=== PATIENT | male | born 1970 | race Caucasian/White ===

== ENCOUNTER → 2018-08-11 | Outpatient (CLI) | payer BC ==
--- NOTE | 2018-08-11 11:40 | XR ---
EXAMINATION TYPE: XR shoulder complete RT DATE OF EXAM: 08/11/2018 COMPARISON: NONE HISTORY: 48 year-old male right shoulder pain for a few weeks TECHNIQUE: 3 views FINDINGS: Moderate degenerative joint space narrowing with marginal spurring at the acromioclavicular joint. Si milar spurring extends into the subacromial space. There is mild degenerative change at the glenohume ral joint with subchondral cystic change within the inferior glenoid. No acute fracture, subluxation, or dislocation. IMPRESSION: 1. Mild glenohumeral joint OA. 2. Moderate AC joint OA. 3. No acute osseous abnormality seen.
--- NOTE | 2018-08-11 12:04 | XR ---
EXAMINATION TYPE: XR ankle complete RT DATE OF EXAM: 08/11/2018 COMPARISON: NONE HISTORY: 48 year-old male right ankle pain for a few weeks TECHNIQUE: 3 views FINDINGS: Lateral sideplate and screw fixation of the distal fibula. Corticated ossific fragment below the medi al malleolus compatible with chronic ununited fracture fragment. Additional loose body or an united f racture fragment measuring 7 mm on the anterior aspect of the tibiotalar joint. There is subchondral lucency focally within the medial talar dome on the oblique view. Otherwise, ankle mortise is congrue nt. Subtalar joint is aligned. Small plantar calcaneal spur. IMPRESSION: 1. Plate and screw fixation of the distal fibula. Soft tissue swelling about the ankle with suspected OCD at the medial talar dome. MRI can provide further evaluation if this is not a known diagnosis. 2. 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
== END | disposition home or self-care (01) ==
LOC: RADXRMAIN 09:02
PROVIDERS: ATTEND Pediatrics
DX: M19.011 Primary osteoarthritis, right shoulder (principal); M84.471 Pathological fracture, right ankle; Z96.7 Presence of other bone and tendon implants

== ENCOUNTER 2018-09-04 15:30 | Emergency (ER) | payer BC ==
[2018-09-04 16:02] VITALS: BP 122/75; PULSE 66; RESP 18; TEMP 97.7
--- NOTE | 2018-09-04 16:27 | XR ---
EXAMINATION TYPE: XR foot complete RT DATE OF EXAM: 09/04/2018 COMPARISON: NONE HISTORY: Pain TECHNIQUE: 3 views FINDINGS: Metatarsals are intact. There is an Achilles calcaneal spur. I see no fracture nor dislocat ion. There are no erosions. There is a plate fixing the distal fibula. IMPRESSION: No acute abnormality of the right foot.
--- NOTE | 2018-09-04 16:32 | ED ---
General Adult HPI - General Chief complaint: Extremity Injury, Lower Stated complaint: Foot pain Time Seen by Provider: 09/04/18 16:16 Source: patient, RN notes reviewed Mode of arrival: ambulatory Limitations: no limitations - History of Present Illness Initial comments: 48-year-old male with history of hypertension presents to the emergency department for chief complaint of right foot pain times one day. Patient states yesterday he was walking and felt a pop in the bottom of his foot. He states that his pain is currently a 4 out of 10. He states that he can walk on it but is limping somewhat. He states he has not been taking anything for pain. Patient states he does notice his foot is more swollen. He denies any calf pain or history of DVT. Denies any other injuries. He states he did have an ankle surgery in the past and is seeing Dr. Dee in 10 days as he has had pain with his ankle. He recently had an x-ray of the ankle and does not need another one today. Patient has no other complaints at this time including shortness of breath, chest pain, abdominal pain, nausea or vomiting, headache, or visual changes. - Related Data Home Medications Medication Instructions Recorded Confirmed ARIPiprazole [Abilify] 30 mg PO DAILY 09/04/18 09/04/18 Aspirin 81 mg PO DAILY 09/04/18 09/04/18 Diltiazem HCl [Diltiazem 24Hr CD] 120 mg DAILY 09/04/18 09/04/18 [place] Carbonate 300 mg PO DAILY 09/04/18 09/04/18 Metoprolol Tartrate [Lopressor] 100 mg PO BID 09/04/18 09/04/18 Multivitamin [Men's Multi-Vitamin] 1 cap DAILY 09/04/18 09/04/18 QUEtiapine [SEROquel] 100 mg PO DAILY 09/04/18 09/04/18 Sertraline [Zoloft] 50 mg PO DAILY 09/04/18 09/04/18 Temazepam [Restoril] 30 mg PO HS PRN 09/04/18 09/04/18 Trihexyphenidyl [Artane] 2 mg PO BID 09/04/18 09/04/18 Allergies Allergy/AdvReac Type Severity Reaction Status Date / Time No Known Allergies Allergy Verified 09/04/18 15:59 Review of Systems ROS Statement: Those systems with pertinent positive or pertinent negative responses have been documented in the HPI. ROS Other: All systems not noted in ROS Statement are negative. Past Medical History Past Medical History: Hypertension History of Any Multi-Drug Resistant Organisms: None Reported Past Surgical History: Orthopedic Surgery Additional Past Surgical History / Comment(s): R leg Past Psychological History: Depression, Schizophrenia Smoking Status: Never smoker Past Alcohol Use History: None Reported Past Drug Use History: None Reported General Exam Limitations: no limitations General appearance: alert, in no apparent distress Head exam: Present: atraumatic, normocephalic, normal inspection Eye exam: Present: normal appearance, PERRL, EOMI. Absent: scleral icterus, conjunctival injection, periorbital swelling ENT exam: Present: normal exam, mucous membranes moist Neck exam: Present: normal inspection, full ROM. Absent: tenderness, meningismus, lymphadenopathy Respiratory exam: Present: normal lung sounds bilaterally. Absent: respiratory distress, wheezes, rales, rhonchi, stridor Cardiovascular Exam: Present: regular rate, normal rhythm, normal heart sounds. Absent: systolic murmur, diastolic murmur, rubs, gallop, clicks Extremities exam: Present: full ROM (Full range of motion of the right ankle and digits of the right foot.), tenderness (Minimal unimpressive tenderness noted to the plantar aspect of the right foot), normal capillary refill ( Capillary refill less than 2 seconds and dorsal pedis pulse 2+.), joint swelling (1+ pitting edema noted in the right foot. Patient also has pitting edema in the left foot which is chronic.), other (Mild ecchymosis noted on medial aspect of plantar right foot.). Absent: calf tenderness (No calf tenderness, erythema, edema. Negative Homans sign.) Neurological exam: Present: alert, oriented X3, CN II-XII intact Psychiatric exam: Present: normal affect, normal mood Course Vital Signs 09/04/18 15:59 Temperature 97.7 F Pulse Rate 66 Respiratory 18 Rate Blood Pressure 122/75 O2 Sat by Pulse 100 Oximetry Medical Decision Making - Medical Decision Making 48-year-old male presents to the emergency department for a chief complaint of right foot pain and swelling times one day. Patient states he was walking yesterday when he felt a pop in the arch of his foot. Patient denies history of diabetes. Patient has had ankle surgery in the past and currently has an appointment scheduled for 10 days from now with orthopedics. On exam neurovascular intact. There is mild ecchymosis noted on the medial plantar aspect of the right foot. Patient states he is able to ambulate that it is somewhat painful. X-rays shows no fracture or dislocation. However, patient I did recommend splint as I cannot rule out ligament injury at this point. Patient refused this. He states he does not feel like he needs a splint. He states he will use crutches at home and not bear weight. He does agree to use a fracture shoe. He will follow up with orthopedics in one to 2 days. Patient will contact Dr. Dee and see if he can expedite his appointment. Otherwise he will call on-call orthopedic surgeon. Educated on rice therapy and Motrin and Tylenol for pain. I did offer patient pain medications in the emergency department which she did refuse. He will return to the emergency department if he has any worsening symptoms. Discussed with Dr. Alas Disposition Clinical Impression: Foot pain, right Disposition: HOME SELF-CARE Condition: Good Instructions: Foot Sprain (ED) Additional Instructions: Rest ice and elevate the right foot. Wear fracture shoe until you see orthopedics. Use crutches until you see orthopedics. Please follow-up with orthopedics in one to 2 days. Please return immediately to the emergency department if you have any worsening symptoms. Is patient prescribed a controlled substance at d/c from ED?: No Referrals: Pepe Peterson MD [STAFF PHYSICIAN] - 1-2 days Time of Disposition: 17:02
== END 2018-09-04 17:36 | disposition home or self-care (01) ==
LOC: EC 15:30
DX: S90.31XA Contusion of right foot, initial encounter (principal); M25.571 Pain in right ankle and joints of right foot; I10 Essential (primary) hypertension; F20.9 Schizophrenia, unspecified; F32.9 Major depressive disorder, single episode, unspecified; Z79.82 Long term (current) use of aspirin; Z79.899 Other long term (current) drug therapy; Z98.890 Other specified postprocedural states; X50.9XXA Other and unspecified overexertion or strenuous movements or postures, initial encounter; Y93.01 Activity, walking, marching and hiking
CPT/HCPCS: 99283

== ENCOUNTER 2018-12-24 14:32 | Inpatient (IN) | payer BC, MEDICARE ==
[2018-12-24] MEDS ORDERED: IPRATROPIUM-ALBUTEROL 3 ML NEB INHALATION STA (14:51)
[2018-12-24] MEDS ORDERED: SODIUM CHLORIDE 0.9% 1,000 ML IV STA (14:51)
--- NOTE | 2018-12-24 15:00 | ED ---
SOB HPI - General Chief Complaint: Shortness of Breath Stated Complaint: Possible pneumonia Time Seen by Provider: 12/24/18 14:52 Source: patient, RN notes reviewed Mode of arrival: ambulatory Limitations: no limitations - History of Present Illness Initial Comments: Is a 48-year-old male with a benign history who presents with complaints of shortness of breath for about last week or so. He's had chills no sweats he is has some left-sided chest discomfort along with it he was seen at his doctor's office and sent here for further evaluation for possible pneumonia. 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 He denies any other complaints at this time. MD Complaint: shortness of breath - Related Data Home Medications Medication Instructions Recorded Confirmed ARIPiprazole [Abilify] 30 mg PO DAILY 09/04/18 12/24/18 Aspirin 81 mg PO DAILY 09/04/18 12/24/18 Diltiazem HCl [Diltiazem 24Hr CD] 120 mg PO DAILY 09/04/18 12/24/18 [place] Carbonate 300 mg PO BID 09/04/18 12/24/18 Metoprolol Tartrate [Lopressor] 100 mg PO BID 09/04/18 12/24/18 Multivitamin [Men's Multi-Vitamin] 1 cap PO DAILY 09/04/18 12/24/18 QUEtiapine [SEROquel] 100 mg PO DAILY@1700 09/04/18 12/24/18 Sertraline [Zoloft] 75 mg PO DAILY 09/04/18 12/24/18 Temazepam [Restoril] 30 mg PO HS PRN 09/04/18 12/24/18 Trihexyphenidyl [Artane] 2 mg PO BID 09/04/18 12/24/18 Allergies Allergy/AdvReac Type Severity Reaction Status Date / Time No Known Allergies Allergy Verified 12/24/18 14:55 Review of Systems ROS Statement: Those systems with pertinent positive or pertinent negative responses have been documented in the HPI. ROS Other: All systems not noted in ROS Statement are negative. Past Medical History Past Medical History: Hypertension History of Any Multi-Drug Resistant Organisms: None Reported Past Surgical History: Orthopedic Surgery Additional Past Surgical History / Comment(s): R leg Past Psychological History: Depression, Schizophrenia Smoking Status: Never smoker Past Alcohol Use History: None Reported Past Drug Use History: None Reported General Exam - General Exam Comments Initial Comments: Is a well-developed well-nourished awake alert oriented 3 male Limitations: no limitations General appearance: alert, anxious, in distress Head exam: Present: atraumatic, normocephalic, normal inspection Eye exam: Present: normal appearance, PERRL, EOMI. Absent: scleral icterus, conjunctival injection, periorbital swelling ENT exam: Present: mucous membranes dry Neck exam: Present: normal inspection. Absent: tenderness, meningismus, lymphadenopathy Respiratory exam: Present: rhonchi (Follow-up rhonchi), chest wall tenderness, decreased breath sounds. Absent: respiratory distress, wheezes, rales, stridor Cardiovascular Exam: Present: regular rate, normal rhythm, normal heart sounds. Absent: systolic murmur, diastolic murmur, rubs, gallop, clicks GI/Abdominal exam: Present: soft, normal bowel sounds. Absent: distended, tenderness, guarding, rebound, rigid Extremities exam: Present: normal inspection, full ROM, normal capillary refill , pedal edema (Race edema bilaterally more swelling right than left). Absent: tenderness, joint swelling, calf tenderness Back exam: Present: normal inspection Neurological exam: Present: alert, oriented X3, CN II-XII intact Psychiatric exam: Present: normal affect, normal mood Skin exam: Present: warm, dry, intact, normal color. Absent: rash Course Vital Signs 12/24/18 12/24/18 12/24/18 14:34 15:09 15:19 Temperature 97.6 F Pulse Rate 79 82 81 Respiratory 24 16 16 Rate Blood Pressure 192/71 O2 Sat by Pulse 81 L Oximetry - Reevaluation(s) Reevaluation #1: 12/24/18 16:24 I did reevaluate the patient on several occasions his saturation still remains low however it does not seem to correlate with clinical condition. Medical Decision Making - Medical Decision Making I did discuss the findings with the patient and family members as well as Dr. hook who is covering for Dr. Remy patient will be admitted with pulmonary consultation. - Lab Data Result diagrams: 12/24/18 15:09 12/24/18 15:09 Lab Results 12/24/18 12/24/18 12/24/18 Range/Units 15:09 15:09 15:09 WBC 11.3 H (3.8-10.6) k/uL RBC 4.96 (4.30-5.90) m/uL Hgb 14.1 (13.0-17.5) gm/dL Hct 42.7 (39.0-53.0) % MCV 86.1 (80.0-100.0) fL MCH 28.5 (25.0-35.0) pg MCHC 33.1 (31.0-37.0) g/dL RDW 15.2 (11.5-15.5) % Plt Count 254 (150-450) k/uL Neutrophils % 74 % Lymphocytes % 14 % Monocytes % 6 % Eosinophils % 3 % Basophils % 1 % Neutrophils # 8.4 H (1.3-7.7) k/uL Lymphocytes # 1.6 (1.0-4.8) k/uL Monocytes # 0.7 (0-1.0) k/uL Eosinophils # 0.4 (0-0.7) k/uL Basophils # 0.1 (0-0.2) k/uL PT (9.0-12.0) sec INR (<1.2) APTT (22.0-30.0) sec Sodium 143 (137-145) mmol/L Potassium 4.8 (3.5-5.1) mmol/L Chloride 107 (98-107) mmol/L Carbon Dioxide 25 (22-30) mmol/L Anion Gap 11 mmol/L BUN 15 (9-20) mg/dL Creatinine 1.01 (0.66-1.25) mg/dL Est GFR (CKD-EPI)AfAm >90 (>60 ml/min/1.73 sqM) Est GFR (CKD-EPI)NonAf 88 (>60 ml/min/1.73 sqM) Glucose 111 H (74-99) mg/dL Calcium 9.7 (8.4-10.2) mg/dL Magnesium 2.1 (1.6-2.3) mg/dL Total Bilirubin 0.6 (0.2-1.3) mg/dL AST 29 (17-59) U/L ALT 31 (21-72) U/L Alkaline Phosphatase 111 (38-126) U/L Total Creatine Kinase 204 H (55-170) U/L CK-MB (CK-2) 1.9 (0.0-2.4) ng/mL CK-MB (CK-2) Rel Index 0.9 Troponin I 0.018 (0.000-0.034) ng/mL NT-Pro-B Natriuret Pep pg/mL Total Protein 7.7 (6.3-8.2) g/dL Albumin 4.4 (3.5-5.0) g/dL 12/24/18 12/24/18 Range/Units 15:09 15:09 WBC (3.8-10.6) k/uL RBC (4.30-5.90) m/uL Hgb (13.0-17.5) gm/dL Hct (39.0-53.0) % MCV (80.0-100.0) fL MCH (25.0-35.0) pg MCHC (31.0-37.0) g/dL RDW (11.5-15.5) % Plt Count (150-450) k/uL Neutrophils % % Lymphocytes % % Monocytes % % Eosinophils % % Basophils % % Neutrophils # (1.3-7.7) k/uL Lymphocytes # (1.0-4.8) k/uL Monocytes # (0-1.0) k/uL Eosinophils # (0-0.7) k/uL Basophils # (0-0.2) k/uL PT 10.6 (9.0-12.0) sec INR 1.0 (<1.2) APTT 24.8 (22.0-30.0) sec Sodium (137-145) mmol/L Potassium (3.5-5.1) mmol/L Chloride (98-107) mmol/L Carbon Dioxide (22-30) mmol/L Anion Gap mmol/L BUN (9-20) mg/dL Creatinine (0.66-1.25) mg/dL Est GFR (CKD-EPI)AfAm (>60 ml/min/1.73 sqM) Est GFR (CKD-EPI)NonAf (>60 ml/min/1.73 sqM) Glucose (74-99) mg/dL Calcium (8.4-10.2) mg/dL Magnesium (1.6-2.3) mg/dL Total Bilirubin (0.2-1.3) mg/dL AST (17-59) U/L ALT (21-72) U/L Alkaline Phosphatase (38-126) U/L Total Creatine Kinase (55-170) U/L CK-MB (CK-2) (0.0-2.4) ng/mL CK-MB (CK-2) Rel Index Troponin I (0.000-0.034) ng/mL NT-Pro-B Natriuret Pep 114 pg/mL Total Protein (6.3-8.2) g/dL Albumin (3.5-5.0) g/dL - EKG Data -: EKG Interpreted by N[place] EKG shows normal: sinus rhythm (EKG shows normal sinus rhythm of 82. Interval 180 QRS duration 90 QT since QTC 382/446 st-t wave changes) - Radiology Data Radiology results: report reviewed, image reviewed (Review the imaging and report is evidence of left lower lobe left upper lobe/multilobar pneumonia) Critical Care Time Critical Care Time: Yes Critical Care Time: 31 minutes of critical care time which includes initial presentation with history physical labs x-rays multiple reevaluation patient responsive therapy discuss with the patient and family regarding findings discussion with Dr. crespo. The patient was documentation of the above. Disposition Clinical Impression: Pneumonia, Bronchospasm, acute, Hypoxemia Disposition: ADMITTED IP TO THIS [facility] Condition: Serious Referrals: Omer Remy MD [Primary Care Provider] - 1-2 days
[2018-12-24 15:23] LABS: Basophils # (A) 0.1 k/uL (0-0.2); Basophils % (A) 1 %; Eosinophils # (A) 0.4 k/uL (0-0.7); Eosinophils % (A) 3 %; HCT 42.7 % (39.0-53.0); HGB 14.1 gm/dL (13.0-17.5); Lymphocytes # (A) 1.6 k/uL (1.0-4.8); Lymphocytes % (A) 14 %; MCH 28.5 pg (25.0-35.0); MCHC 33.1 g/dL (31.0-37.0); MCV 86.1 fL (80.0-100.0); Mean Platelet Volume 7.1; Monocytes # (A) 0.7 k/uL (0-1.0); Monocytes % (A) 6 %; Neutrophils # (A) 8.4 k/uL (1.3-7.7); Neutrophils % (A) 74 %; Platelet Count 254 k/uL (150-450); RBC 4.96 m/uL (4.30-5.90); RDW 15.2 % (11.5-15.5); WBC 11.3 k/uL (3.8-10.6)
[2018-12-24 15:32] LABS: ALT 31 U/L (21-72); AST 29 U/L (17-59); Albumin 4.4 g/dL (3.5-5.0); Alkaline Phosphatase 111 U/L (38-126); Anion Gap 11 mmol/L; Blood Urea Nitrogen 15 mg/dL (9-20); Calcium 9.7 mg/dL (8.4-10.2); Carbon Dioxide 25 mmol/L (22-30); Chloride 107 mmol/L (98-107); Glucose 111 mg/dL (74-99); Magnesium 2.1 mg/dL (1.6-2.3); Potassium 4.8 mmol/L (3.5-5.1); Sodium 143 mmol/L (137-145); Total Bilirubin 0.6 mg/dL (0.2-1.3); Total Protein 7.7 g/dL (6.3-8.2)
[2018-12-24 15:46] LABS: Partial Thromboplastin Time 24.8 sec (22.0-30.0); Prothrombin Time 10.6 sec (9.0-12.0)
--- NOTE | 2018-12-24 15:48 | XR ---
EXAMINATION TYPE: XR chest 2V DATE OF EXAM: 12/24/2018 COMPARISON: NONE HISTORY: Shortness of breath and difficulty breathing TECHNIQUE: Frontal and lateral views of the chest are obtained. FINDINGS: Multifocal airspace disease is seen on the left predominating within the left midlung. Rig ht lung remains clear but hyperexpanded. Cardia mediastinal silhouette is upper limits of normal in s ize. Moderate multilevel degenerative changes of the thoracic spine are seen. No sizable pneumothorax or pleural effusion. IMPRESSION: Multifocal left-sided airspace disease suspicious for multifocal pneumonia. Follow-up to resolution is recommended to exclude underlying mass.
[2018-12-24 15:55] LABS: Creatine Kinase MB 1.9 ng/mL (0.0-2.4); Troponin I 0.018 ng/mL (0.000-0.034)
[2018-12-24] MEDS ORDERED: PNEUMONIA PROTOCOL UTILIZED 1 EACH MISC PO PRN (16:26)
[2018-12-24] MEDS ORDERED: AZITHROMYCIN 500 MG in SODIUM CHLORIDE 0.9% 250 ML IVPB STA (16:26)
[2018-12-24] MEDS ORDERED: TEMAZEPAM 30 MG CAP PO PRN (16:29)
--- NOTE | 2018-12-24 16:31 | ED ---
Medical Decision Making - Lab Data Result diagrams: 12/24/18 15:09 12/24/18 15:09 Lab Results 12/24/18 12/24/18 12/24/18 Range/Units 15: 15: 15:09 WBC 11.3 H (3.8-10.6) k/uL RBC 4.96 (4.30-5.90) m/uL Hgb 14.1 (13.0-17.5) gm/dL Hct 42.7 (39.0-53.0) % MCV 86.1 (80.0-100.0) fL MCH 28.5 (25.0-35.0) pg MCHC 33.1 (31.0-37.0) g/dL RDW 15.2 (11.5-15.5) % Plt Count 254 (150-450) k/uL Neutrophils % 74 % Lymphocytes % 14 % Monocytes % 6 % Eosinophils % 3 % Basophils % 1 % Neutrophils # 8.4 H (1.3-7.7) k/uL Lymphocytes # 1.6 (1.0-4.8) k/uL Monocytes # 0.7 (0-1.0) k/uL Eosinophils # 0.4 (0-0.7) k/uL Basophils # 0.1 (0-0.2) k/uL PT (9.0-12.0) sec INR (<1.2) APTT (22.0-30.0) sec Sodium 143 (137-145) mmol/L Potassium 4.8 (3.5-5.1) mmol/L Chloride 107 (98-107) mmol/L Carbon Dioxide 25 (22-30) mmol/L Anion Gap 11 mmol/L BUN 15 (9-20) mg/dL Creatinine 1.01 (0.66-1.25) mg/dL Est GFR (CKD-EPI)AfAm >90 (>60 ml/min/1.73 sqM) Est GFR (CKD-EPI)NonAf 88 (>60 ml/min/1.73 sqM) Glucose 111 H (74-99) mg/dL Calcium 9.7 (8.4-10.2) mg/dL Magnesium 2.1 (1.6-2.3) mg/dL Total Bilirubin 0.6 (0.2-1.3) mg/dL AST 29 (17-59) U/L ALT 31 (21-72) U/L Alkaline Phosphatase 111 (38-126) U/L Total Creatine Kinase 204 H (55-170) U/L CK-MB (CK-2) 1.9 (0.0-2.4) ng/mL CK-MB (CK-2) Rel Index 0.9 Troponin I 0.018 (0.000-0.034) ng/mL NT-Pro-B Natriuret Pep pg/mL Total Protein 7.7 (6.3-8.2) g/dL Albumin 4.4 (3.5-5.0) g/dL 12/24/18 12/24/18 Range/Units 15:09 15:09 WBC (3.8-10.6) k/uL RBC (4.30-5.90) m/uL Hgb (13.0-17.5) gm/dL Hct (39.0-53.0) % MCV (80.0-100.0) fL MCH (25.0-35.0) pg MCHC (31.0-37.0) g/dL RDW (11.5-15.5) % Plt Count (150-450) k/uL Neutrophils % % Lymphocytes % % Monocytes % % Eosinophils % % Basophils % % Neutrophils # (1.3-7.7) k/uL Lymphocytes # (1.0-4.8) k/uL Monocytes # (0-1.0) k/uL Eosinophils # (0-0.7) k/uL Basophils # (0-0.2) k/uL PT 10.6 (9.0-12.0) sec INR 1.0 (<1.2) APTT 24.8 (22.0-30.0) sec Sodium (137-145) mmol/L Potassium (3.5-5.1) mmol/L Chloride (98-107) mmol/L Carbon Dioxide (22-30) mmol/L Anion Gap mmol/L BUN (9-20) mg/dL Creatinine (0.66-1.25) mg/dL Est GFR (CKD-EPI)AfAm (>60 ml/min/1.73 sqM) Est GFR (CKD-EPI)NonAf (>60 ml/min/1.73 sqM) Glucose (74-99) mg/dL Calcium (8.4-10.2) mg/dL Magnesium (1.6-2.3) mg/dL Total Bilirubin (0.2-1.3) mg/dL AST (17-59) U/L ALT (21-72) U/L Alkaline Phosphatase (38-126) U/L Total Creatine Kinase (55-170) U/L CK-MB (CK-2) (0.0-2.4) ng/mL CK-MB (CK-2) Rel Index Troponin I (0.000-0.034) ng/mL NT-Pro-B Natriuret Pep 114 pg/mL Total Protein (6.3-8.2) g/dL Albumin (3.5-5.0) g/dL Disposition Clinical Impression: Pneumonia, Bronchospasm, acute, Hypoxemia, Adult respiratory distress syndrome Disposition: ADMITTED IP TO THIS HOSP Condition: Serious Referrals: Omer Remy MD [Primary Care Provider] - 1-2 days
[2018-12-24] MEDS ORDERED: ACETAMINOPHEN TAB 325 MG TAB PO STA (16:52)
[2018-12-24] MEDS ORDERED: QUEtiapine 100 MG TAB PO SCH (18:15)
[2018-12-24 18:32] LABS: ABG Base Excess -0.8 mmol/L; ABG HCO3 22 mmol/L (21-25); ABG Oxygen Saturation 76.1 % (94-97); ABG PCO2 33 mmHg (35-45); ABG PH 7.44 (7.35-7.45)
--- NOTE | 2018-12-24 19:00 | CT ---
EXAMINATION TYPE: CT chest wo con DATE OF EXAM: 12/24/2018 COMPARISON: None HISTORY: Difficulty breathing CT DLP: 801.7 mGycm. Automated Exposure Control for Dose Reduction was Utilized. TECHNIQUE: CT scan of the thorax is performed without IV contrast. FINDINGS: There is patchy infiltrate and airspace consolidation in the left lower lobe. There are minimal infil trates in the right lower lobe. There are bilateral pleural effusions. There is small pericardial eff usion. There are multiple air bronchograms. There is also airspace consolidation medial left upper lo be. There is airspace consolidation lingula left upper lobe. I see no hilar mass. There is no mediast inal adenopathy. The bony thorax is intact. I see no focal bone destruction. IMPRESSION: Airspace consolidation in the left lung in the left upper lobe and left lower lobe more l ikely related to bronchopneumonia. Pleural effusions. Small pericardial effusion.
[2018-12-24 19:12] LABS: ABG Base Excess -0.6 mmol/L; ABG HCO3 22 mmol/L (21-25); ABG Oxygen Saturation 76.7 % (94-97); ABG PCO2 33 mmHg (35-45); ABG PH 7.45 (7.35-7.45)
[2018-12-24 19:13] LABS: ABG PO2 40 mmHg (83-108)
[2018-12-24 19:14] LABS: ABG PO2 40 mmHg (83-108)
[2018-12-24] MEDS: methylPREDNISolone SOD SUCCI 125 MG/2 ML VIAL IV SCH ×2 (19:20→23:59)
[2018-12-24] MEDS: IPRATROPIUM-ALBUTEROL 3 ML NEB INHALATION SCH ×2 (19:44→23:33)
[2018-12-24] MEDS ORDERED: VANCOMYCIN 1,000 MG in SODIUM CHLORIDE 0.9% 250 ML IVPB STA (19:50)
[2018-12-24] MEDS ORDERED: VANCOMYCIN IV PER PHARMACY 1 EACH MISC MISCELLANE PRN (19:52)
[2018-12-24] MEDS ORDERED: VANCOMYCIN 2,500 MG in SODIUM CHLORIDE 0.9% 500 ML 500 ML IVPB STA (19:53)
--- NOTE | 2018-12-24 19:57 | P.HPIM ---
History of Present Illness this is a pleasant 48 yo M with pmh of hypertension presents with dyspena of one week duration associatd with tirelness and coughing with little or no phlegms.. and no chest pain .. no sneezing or dizziness, no change in urine or bowel habits , no fever. on admission his oxygen saturation was dropping to 80s. rest ofvitals looks stable, and labs reviewed showing mild leukocytosis of 11.3K and some tachypnea where herat rate goes into twenties. PO2 in ABG drops to 40. influenza is negative and BMP is unremarkable. CXR shows left pneumonia, multifocal. CT of the thorax showing left bronchopneumonia with small bilateral pleural effusion . pt was started on ceftriaxone and zithromax, and iv fluids . oxgyen therapy is requested Review of Systems CONSTITUTIONAL: No fever, no malaise, no fatigue. HEENT: No recent visual problems or hearing problems. Denied any sore throat. CARDIOVASCULAR: No orthopnea, PND, no palpitations, no syncope. PULMONARY: No shortness of breath, no cough, no hemoptysis. GASTROINTESTINAL: No diarrhea, no nausea, no vomiting, no abdominal pain. Normoactive bowel sounds. NEUROLOGICAL: No headaches, no weakness, no numbness. HEMATOLOGICAL: Denies any bleeding or petechiae. GENITOURINARY: Denies any burning micturition, frequency, or urgency. MUSCULOSKELETAL/RHEUMATOLOGICAL: Denies any joint pain, swelling, or any muscle pain. ENDOCRINE: Denies any polyuria or polydipsia. Past Medical History Past Medical History: Hypertension History of Any Multi-Drug Resistant Organisms: None Reported Past Surgical History: Orthopedic Surgery Additional Past Surgical History / Comment(s): R leg Past Psychological History: Depression, Schizophrenia Smoking Status: Never smoker Past Alcohol Use History: None Reported Past Drug Use History: None Reported Medications and Allergies Home Medications Medication Instructions Recorded Confirmed Type ARIPiprazole [Abilify] 30 mg PO DAILY 09/04/18 12/24/18 History Aspirin 81 mg PO DAILY 09/04/18 12/24/18 History Diltiazem HCl [Diltiazem 24Hr CD] 120 mg PO DAILY 09/04/18 12/24/18 History [place] Carbonate 300 mg PO BID 09/04/18 12/24/18 History Metoprolol Tartrate [Lopressor] 100 mg PO BID 09/04/18 12/24/18 History Multivitamin [Men's Multi-Vitamin] 1 cap PO DAILY 09/04/18 12/24/18 History QUEtiapine [SEROquel] 100 mg PO DAILY@1700 09/04/18 12/24/18 History Sertraline [Zoloft] 75 mg PO DAILY 09/04/18 12/24/18 History Temazepam [Restoril] 30 mg PO HS PRN 09/04/18 12/24/18 History Trihexyphenidyl [Artane] 2 mg PO BID 09/04/18 12/24/18 History Allergies Allergy/AdvReac Type Severity Reaction Status Date / Time No Known Allergies Allergy Verified 12/24/18 14:55 Physical Exam Vitals: Vital Signs Temp Pulse Resp BP Pulse Ox 12/24/18 16:30 99 F 85 12 148/81 73 L 12/24/18 15:30 84 25 H 129/73 78 L 12/24/18 15:19 81 16 12/24/18 15:09 82 16 12/24/18 15:00 85 25 H 129/73 77 L 12/24/18 14:46 129/73 79 L 12/24/18 14:34 97.6 F 79 24 192/71 81 L Intake and Output 12/24/18 12/24/18 12/24/18 06:59 14:59 22:59 Other: Weight 134.717 kg GENERAL: The patient is alert and oriented x3, not in any acute distress. Well developed, well nourished. HEENT: Pupils are round and equally reacting to light. EOMI. No scleral icterus. No conjunctival pallor. Normocephalic, atraumatic. No pharyngeal erythema. No thyromegaly. CARDIOVASCULAR: S1 and S2 present. No murmurs, rubs, or gallops. -PULMONARY: Chest is clear to auscultation, no wheezing or crackles. decreased breath sounds on the left lower side ABDOMEN: Soft, nontender, nondistended, normoactive bowel sounds. No palpable organomegaly. MUSCULOSKELETAL: No joint swelling or deformity. EXTREMITIES: No cyanosis, clubbing, or pedal edema. NEUROLOGICAL: Gross neurological examination did not reveal any focal deficits. SKIN: No rashes. Results CBC & Chem 7: 12/24/18 15:09 12/24/18 15:09 Labs: Abnormal Lab Results - Last 24 Hours (Table) 12/24/18 12/24/18 12/24/18 Range/Units 15:09 15:09 15:09 WBC 11.3 H (3.8-10.6) k/uL Neutrophils # 8.4 H (1.3-7.7) k/uL Glucose 111 H (74-99) mg/dL Total Creatine Kinase 204 H (55-170) U/L Assessment and Plan Assessment: left community bronchopneumonia acute hypoxic resp faliure secondary to above . o/ hupertension Plan: this is a pleasant 48 yo M who presents with left pneumonia , c/w antibiotic, send sputum culture , blood culture . iv fluids , oxygen therapy and steroids with breathing treatment and steroids Labs and medication were reviewed.. Continue same treatment. Continue with symptomatic treatment. Resume home medication. Monitor lytes and vitals. DVT and GI prophylaxis. Further recommendations of the clinical course of the patient DVT prophylaxis: Subcutaneous heparin GI Prophylaxis: Pepcid Prognosis is guarded
[2018-12-24 20:51] LABS: Glucose,Whole Blood 117 mg/dL (75-99)
[2018-12-24 21:02] VITALS: BMI 39.6
[2018-12-24] MEDS: SODIUM CHLORIDE 0.9% 1,000 ML IV SCH (21:07)
[2018-12-24 21:45] LABS: ABG Base Excess -2.2 mmol/L; ABG HCO3 22 mmol/L (21-25); ABG Oxygen Saturation 88.7 % (94-97); ABG PCO2 34 mmHg (35-45); ABG PH 7.43 (7.35-7.45); ABG TCO2 23 mmol/L (19-24)
[2018-12-24 21:48] LABS: ABG PO2 53 mmHg (83-108)
[2018-12-24] MEDS: METOPROLOL TARTRATE 50 MG TAB PO SCH (21:57)
[2018-12-24] MEDS: TRIHEXYPHENIDYL 2 MG TAB PO SCH (21:59)
[2018-12-24] MEDS: FAMOTIDINE 20 MG/2 ML VIAL IV SCH (21:59)
[2018-12-24] MEDS: HEPARIN SODIUM,PORCINE 5,000 UNIT/ML 1 ML VIAL SQ SCH (21:59)
[2018-12-24] MEDS: LITHIUM CARBONATE 300 MG CAP PO SCH (21:59)
[2018-12-24] MEDS: QUEtiapine 100 MG TAB PO SCH (22:18)
[2018-12-24] MEDS: CEFEPIME 2 GM in SODIUM CHLORIDE 0.9% 100 ML IVPB SCH (23:38)
[2018-12-25] MEDS: IPRATROPIUM-ALBUTEROL 3 ML NEB INHALATION SCH ×6 (04:08→23:38)
[2018-12-25 05:12] LABS: Basophils % (A) 0 %; Eosinophils % (A) 0 %; HCT 45.4 % (39.0-53.0); HGB 14.3 gm/dL (13.0-17.5); Hypochromasia Slight; Lymphocytes # (A) 0.8 k/uL (1.0-4.8); Lymphocytes % (A) 8 %; MCH 27.9 pg (25.0-35.0); MCHC 31.6 g/dL (31.0-37.0); MCV 88.3 fL (80.0-100.0); Mean Platelet Volume 7.4; Monocytes # (A) 0.2 k/uL (0-1.0); Monocytes % (A) 2 %; Neutrophils # (A) 8.9 k/uL (1.3-7.7); Neutrophils % (A) 89 %; Platelet Count 230 k/uL (150-450); RBC 5.14 m/uL (4.30-5.90); RDW 15.2 % (11.5-15.5)
[2018-12-25 05:39] LABS: Anion Gap 10 mmol/L; Blood Urea Nitrogen 14 mg/dL (9-20); Calcium 9.3 mg/dL (8.4-10.2); Carbon Dioxide 19 mmol/L (22-30); Chloride 113 mmol/L (98-107); Glucose 159 mg/dL (74-99); Magnesium 2.1 mg/dL (1.6-2.3); Potassium 4.9 mmol/L (3.5-5.1); Sodium 142 mmol/L (137-145)
[2018-12-25] MEDS: VANCOMYCIN 2,250 MG in SODIUM CHLORIDE 0.9% 500 ML 500 ML IVPB SCH ×2 (06:33→17:19)
[2018-12-25] MEDS: methylPREDNISolone SOD SUCCI 125 MG/2 ML VIAL IV SCH ×3 (06:33→17:21)
[2018-12-25] MEDS: SODIUM CHLORIDE 0.9% 1,000 ML IV SCH ×2 (06:33→17:22)
--- NOTE | 2018-12-25 07:35 | XR ---
EXAMINATION TYPE: XR chest 1V DATE OF EXAM: 12/25/2018 COMPARISON: 12/24/2018 HISTORY: Chest pain TECHNIQUE: Single frontal view of the chest is obtained. FINDINGS: Left perihilar and left basilar infiltrate persists. No significant change The cardiac silhouette size is within normal limits. The osseous structures are intact. IMPRESSION: 1. Left perihilar and left basilar infiltrate persists. No significant change
[2018-12-25] MEDS: CEFEPIME 2 GM in SODIUM CHLORIDE 0.9% 100 ML IVPB SCH ×2 (09:00→16:24)
[2018-12-25] MEDS: FAMOTIDINE 20 MG/2 ML VIAL IV SCH ×2 (09:03→20:20)
[2018-12-25] MEDS: METOPROLOL TARTRATE 50 MG TAB PO SCH ×2 (09:03→20:26)
[2018-12-25] MEDS: ASPIRIN 81 MG PO SCH (09:04)
[2018-12-25] MEDS: LITHIUM CARBONATE 300 MG CAP PO SCH ×2 (09:04→20:27)
[2018-12-25] MEDS: ARIPiprazole 15 MG TAB PO SCH (09:04)
[2018-12-25] MEDS: SERTRALINE 25 MG TAB PO SCH (09:04)
[2018-12-25] MEDS: HEPARIN SODIUM,PORCINE 5,000 UNIT/ML 1 ML VIAL SQ SCH ×2 (09:04→20:25)
[2018-12-25] MEDS: DILTIAZEM CD 120 MG CAP.ER.24H PO SCH (09:04)
[2018-12-25] MEDS: TRIHEXYPHENIDYL 2 MG TAB PO SCH ×2 (09:04→20:27)
[2018-12-25] MEDS: MULTIVITAMINS, THERA 1 EACH TAB PO SCH (12:25)
--- NOTE | 2018-12-25 13:42 | P.CNPUL ---
History of Present Illness Consult date: 12/25/18 Requesting physician: Denny Trejo Reason for consult: pneumonia Chief complaint: cough, shortness of breath History of present illness: this is a 48-year-old white male with history of hypertension, bipolar disorder, presented to the ER last night mostly with 1 week history of shortness of breath , cough, and not feeling well. Patient denies any fever, no chills, no hemoptysis, no chest pain. Patient is not the greatest historian. But nonetheless his chest x-ray in the ER showed extensive pneumonic process involving most of the left lung.this was confirmed by high-resolution CT of the chest, which showed significant airspace consolidation in the left lung, left upper lobe, left lower lobe, no evidence of hilar mass, no mediastinal adenopathy. Patient was noted to be quite hypoxic upon arrival to the ER, and his ABG reflected significant hypoxia with a pO2 of 40on 4 L nasal cannula, follow-up ABG on a high flow nasal cannula showed a pO2 of 53 pCO2 of 34 pH of 7.43. And this was on 80% FiO2. Patient was then switched to BiPAP, and he was kept on BiPAP overnight. In the meantime I have recommended changing the antibiotics to vancomycin and cefepime, I have also recommended Solu-Medrol 60 mg IV push every 6 hours, and recommended bronchodilators as ordered. Patient was admitted to the ICU history of going to the medical floor, and I saw him this morning. Feeling slightly better, he was still on BiPAP with IPAP of 10 and EPAP of 5, and FiO2 was 80%. I did cut down his FiO2 from 80% to 60%. Reviewed his follow-up chest x-ray which is basically about the same. Clinically however the patient is feeling better, breathing easier, and his clinical picture does not correlate with his labs and ABG.patient denies any headaches no blurred vision no dizziness. Denies any chest pain, no nausea no vomiting no abdominal pain. No melena no hematemesis no dysuria and frequency. No symptoms of osteoarthritis. He is known to have history of what seems to be bipolar disorder and he is on multiple psychiatric medications. Review of Systems CONSTITUTIONAL: No fever,however he reports slight weakness and fatigue HEENT: no sore throat, no ear ache. No diplopia, no blurred vision CARDIOVASCULAR: no chest pain no palpitations no diaphoresis no syncope. PULMONARY: as noted in HPI. GASTROINTESTINAL: No diarrhea, no nausea, no vomiting, no abdominal pain. Normoactive bowel sounds. NEUROLOGICAL: No headaches, no blurred vision no dizziness no vertigo HEMATOLOGICAL: no clotting bleeding or bruising GENITOURINARY: Denies any burning micturition, frequency, or urgency. MUSCULOSKELETAL/RHEUMATOLOGICAL: Denies any joint pain, swelling, or any muscle pain. ENDOCRINE: Denies any polyuria or polydipsia. Past Medical History Past Medical History: Hypertension History of Any Multi-Drug Resistant Organisms: None Reported Past Surgical History: Orthopedic Surgery Additional Past Surgical History / Comment(s): R leg Smoking Status: Never smoker - Past Family History Father Additional Family Medical History / Comment(s): parkinsons Mother Family Medical History: AFIB, Hypertension Medications and Allergies Home Medications Medication Instructions Recorded Confirmed Type ARIPiprazole [Abilify] 30 mg PO DAILY 09/04/18 12/24/18 History Aspirin 81 mg PO DAILY 09/04/18 12/24/18 History Diltiazem HCl [Diltiazem 24Hr CD] 120 mg PO DAILY 09/04/18 12/24/18 History [place] Carbonate 300 mg PO BID 09/04/18 12/24/18 History Metoprolol Tartrate [Lopressor] 100 mg PO BID 09/04/18 12/24/18 History Multivitamin [Men's Multi-Vitamin] 1 cap PO DAILY 09/04/18 12/24/18 History QUEtiapine [SEROquel] 100 mg PO DAILY@1700 09/04/18 12/24/18 History Sertraline [Zoloft] 75 mg PO DAILY 09/04/18 12/24/18 History Temazepam [Restoril] 30 mg PO HS PRN 09/04/18 12/24/18 History Trihexyphenidyl [Artane] 2 mg PO BID 09/04/18 12/24/18 History Allergies Allergy/AdvReac Type Severity Reaction Status Date / Time No Known Allergies Allergy Verified 12/24/18 14:55 Physical Exam Vitals: Vital Signs Temp Pulse Pulse Resp BP Pulse Ox 12/25/18 12:35 93 L 12/25/18 12:25 93 12/25/18 12:05 91 12/25/18 12:00 98.6 F 88 23 146/92 93 L 12/25/18 11:00 101 H 35 H 135/86 95 12/25/18 10:00 99 30 H 124/80 96 12/25/18 09:00 94 29 H 140/84 85 L 12/25/18 08:00 98.7 F 79 20 133/76 95 12/25/18 07:59 88 12/25/18 07:46 80 12/25/18 07:00 92 17 143/82 98 12/25/18 06:30 98 25 H 135/80 95 12/25/18 06:00 89 20 141/86 95 12/25/18 05:30 94 23 144/81 95 12/25/18 05:00 99 22 141/80 91 L 12/25/18 04:30 98 26 H 128/78 95 12/25/18 04:28 100 12/25/18 04:08 96 12/25/18 04:00 98.5 F 100 98 28 H 116/73 96 12/25/18 03:30 86 21 118/66 90 L 12/25/18 03:00 89 21 127/73 90 L 12/25/18 02:30 96 23 113/58 93 L 12/25/18 02:00 82 20 113/58 92 L 12/25/18 01:30 93 24 96 12/25/18 01:00 95 26 H 148/82 97 12/25/18 00:30 92 22 95 12/25/18 00:04 95 24 89 L 12/25/18 00:00 98.3 F 96 26 H 91 L 12/24/18 23:44 91 12/24/18 23:33 90 12/24/18 23:30 90 25 H 143/87 92 L 12/24/18 23:07 94 23 12/24/18 23:00 91 23 154/88 93 L 12/24/18 22:30 100 94 24 154/88 92 L 12/24/18 22:01 100 21 160/88 92 L 12/24/18 21:30 97.5 F L 98 21 160/88 91 L 12/24/18 20:15 95 18 164/91 93 L 12/24/18 19:57 95 18 12/24/18 19:45 91 16 12/24/18 19:30 90 26 H 146/82 86 L 12/24/18 18:30 85 12 157/84 86 L 12/24/18 17:30 92 51 H 162/84 84 L 12/24/18 17:00 82 17 148/81 81 L 12/24/18 16:30 99 F 85 12 148/81 73 L 12/24/18 15:30 84 25 H 129/73 78 L 12/24/18 15:19 81 16 12/24/18 15:09 82 16 12/24/18 15:00 85 25 H 129/73 77 L 12/24/18 14:46 129/73 79 L 12/24/18 14:34 97.6 F 79 24 192/71 81 L Intake and Output 12/24/18 12/25/18 12/25/18 22:59 06:59 14:59 Intake Total 575 700 940 Output Total 375 1250 0 Balance 200 -550 940 Intake: IV 575 700 700 Cefepime 2 gm In Sodium 100 100 Chloride 0.9% 100 ml @ 200 mls/hr IVPB Q8HR [facility] Rx#:[id number] Sodium Chloride 0.9% 1, 500 600 000 ml @ 100 mls/hr IV . Q10H [facility] Rx#:[id number] Sodium Chloride 0.9% 1, 75 000 ml @ 75 mls/hr IV . [id number] [facility] Rx#:[id number] Vancomycin 2,500 mg In 500 100 Sodium Chloride 0.9% 500 ml 500 ml @ 167 mls/hr IVPB ONCE STA Rx#: [id number] Oral 240 Output: Urine 375 1250 0 Other: # Voids 0 1 0 Weight 134.2 kg Physical Exam: Revealed a 48-year-old white male, obese, on BiPAP, very pleasant , in no distress. Head: Atraumatic, normocephalic HEENT:[Neck is supple.] [No neck masses.] [No thyromegaly.] [No JVD.]PERRLA, EOMI, no icterus. Chest: [Cunilateral rhonchi and wheezes noted mostly on the left side, right side is relatively clear, symmetrical chest expansion, no chest wall tenderness. No dullness Cardiac Exam: [Normal S1 and S2, no S3 gallop, no murmur.] Abdomen: [obese,Soft, nontender, no megaly, no rebound, no guarding, normal bowel sounds.] Extremities: [No clubbing, no edema, no cyanosis.] Neurological Exam: [No focal neurologic deficit.]alert oriented 3. Psychiatric: Normal mood, affect and mental status examination. Results - Laboratory Findings CBC and BMP: 12/25/18 04:20 12/25/18 04:20 ABG ABG pH 7.43 (7.35-7.45) 12/24/18 21:29 ABG pCO2 34 mmHg (35-45) L 12/24/18 21:29 ABG pO2 53 mmHg (83-108) L* 12/24/18 21:29 ABG O2 Saturation 88.7 % (94-97) L 12/24/18 21:29 PT/INR, D-dimer PT 10.6 sec (9.0-12.0) 12/24/18 15:09 INR 1.0 (<1.2) 12/24/18 15:09 Abnormal lab findings: Abnormal Labs 12/24/18 12/24/18 12/24/18 15:09 15:09 15:09 WBC 11.3 H Neutrophils # 8.4 H Lymphocytes # ABG pCO2 ABG pO2 ABG O2 Saturation Chloride Carbon Dioxide Creatinine Glucose 111 H POC Glucose (mg/dL) Total Creatine Kinase 204 H 12/24/18 12/24/18 12/24/18 19:00 19:05 20:39 WBC Neutrophils # Lymphocytes # ABG pCO2 33 L 33 L ABG pO2 40 L* 40 L* ABG O2 Saturation 76.1 L 76.7 L Chloride Carbon Dioxide Creatinine Glucose POC Glucose (mg/dL) 117 H Total Creatine Kinase 12/24/18 12/25/18 12/25/18 21:29 04:20 04:20 WBC Neutrophils # 8.9 H Lymphocytes # 0.8 L ABG pCO2 34 L ABG pO2 53 L* ABG O2 Saturation 88.7 L Chloride 113 H Carbon Dioxide 19 L Creatinine 0.62 L Glucose 159 H POC Glucose (mg/dL) Total Creatine Kinase - Diagnostic Findings Chest x-ray: image reviewed (as noted in HPI) CT scan - chest: image reviewed (as noted in HPI) Assessment and Plan Assessment: impression: 1 acute hypoxic respiratory failure secondary to extensive left sided pneumonia , community-acquired. 2 reactive bronchospasm as noted on physical examination. 3 history of bipolar disorder 4 history of benign essential hypertension. Recommendation:continue present antibiotics, patient is presently on Zithromax, cefepime, and vancomycin. These will be changed once we have some cultures of blood or sputum available. In the meantime considering the severity of the pneumonia and the profound hypoxia noted on presentation, I recommended that would broaden the spectrum of antibiotics as much as possible and the patient is now on bronchodilators, steroids, and I proceeded to keep him in the intensive care unit at least for today. I was able to cut down the FiO2 from 80 % on his BiPAP. And he is now on 60% will titrate accordingly.continue DuoNeb updrafts 4 times a day and when necessary. Patient is back on his psychiatric medications. We'll continue to follow closely. Time with Patient: Greater than 30
[2018-12-25] MEDS ORDERED: AZITHROMYCIN 500 MG TAB PO SCH (17:00)
[2018-12-25] MEDS: QUEtiapine 100 MG TAB PO SCH (17:22)
--- NOTE | 2018-12-25 18:36 | P.PN ---
Subjective this is a pleasant 48 yo M with pmh of hypertension presents with dyspena of one week duration associatd with tirelness and coughing with little or no phlegms.. and no chest pain .. no sneezing or dizziness, no change in urine or bowel habits , no fever. on admission his oxygen saturation was dropping to 80s. rest ofvitals looks stable, and labs reviewed showing mild leukocytosis of 11.3K and some tachypnea where herat rate goes into twenties. PO2 in ABG drops to 40. influenza is negative and BMP is unremarkable. CXR shows left pneumonia, multifocal. CT of the thorax showing left bronchopneumonia with small bilateral pleural effusion . pt was started on ceftriaxone and zithromax, and iv fluids . oxgyen therapy is requested 12/25/2018 Patient was transferred to the ICU yesterday overnight for patient was hypoxic and there was risk been intubated. Today he was seen in the ICU patient was on BiPAP tolerating that well. He was fully awake and oriented and he is feeling the same as yesterday not in respiratory distress, no chest pain, no significant dyspnea, however he did oxygen therapy to came is saturating up. Flaps looks stable blood culture no growth, patient does not make sputum. Patient currently on cefepime and vancomycin and Zithromax. Review of systems CONSTITUTIONAL: No fever, no malaise, no fatigue. HEENT: No recent visual problems or hearing problems. Denied any sore throat. CARDIOVASCULAR: No orthopnea, PND, no palpitations, no syncope. PULMONARY: no hemoptysis. GASTROINTESTINAL: No diarrhea, no nausea, no vomiting, no abdominal pain. Normoactive bowel sounds. NEUROLOGICAL: No headaches, no weakness, no numbness. HEMATOLOGICAL: Denies any bleeding or petechiae. GENITOURINARY: Denies any burning micturition, frequency, or urgency. MUSCULOSKELETAL/RHEUMATOLOGICAL: Denies any joint pain, swelling, or any muscle pain. ENDOCRINE: Denies any polyuria or polydipsia. Medication: Albuterol, Abilify, aspirin, Zithromax, cefepime, vancomycin, Cardizem, Pepcid, heparin, salmeterol, lithium, Lopressor, Seroquel, multivitamin, Zoloft, Restoril, Artane. Objective - Vital Signs Vital signs: Vital Signs Temp 98.1 F 02/16/19 16:00 Pulse 98 12/25/18 18:00 Resp 22 12/25/18 18:00 BP 130/88 12/25/18 18:00 Pulse Ox 93 L 12/25/18 18:00 Intake & Output 12/24/18 12/25/18 12/25/18 18:59 06:59 18:59 Intake Total 1275 2380 Output Total 1625 650 Balance -350 1730 Weight 134.717 kg 134.2 kg Intake: IV 1275 1400 Cefepime 2 gm In Sodium 100 200 Chloride 0.9% 100 ml @ 200 mls/hr IVPB Q8HR [facility] Rx#:[id number] Sodium Chloride 0.9% 1, 500 1200 000 ml @ 100 mls/hr IV . Q10H [facility] Rx#:[id number] Sodium Chloride 0.9% 1, 75 000 ml @ 75 mls/hr IV . [id number] [facility] Rx#:[id number] Vancomycin 2,500 mg In 600 Sodium Chloride 0.9% 500 ml 500 ml @ 167 mls/hr IVPB ONCE [facility] Rx#: [id number] Intake, IV Titration 500 Amount Vancomycin 2,250 mg In 500 Sodium Chloride 0.9% 500 ml 500 ml @ 167 mls/hr IVPB Q12H [facility] Rx#: [id number] Oral 480 Output: Urine 1625 650 Other: # Voids 1 0 - Exam GENERAL: The patient is alert and oriented x3, not in any acute distress. Well developed, well nourished. HEENT: Pupils are round and equally reacting to light. EOMI. No scleral icterus. No conjunctival pallor. Normocephalic, atraumatic. No pharyngeal erythema. No thyromegaly. CARDIOVASCULAR: S1 and S2 present. No murmurs, rubs, or gallops. -PULMONARY: Chest is clear to auscultation, no wheezing or crackles. decreased breath sounds on the left lower side ABDOMEN: Soft, nontender, nondistended, normoactive bowel sounds. No palpable organomegaly. MUSCULOSKELETAL: No joint swelling or deformity. EXTREMITIES: No cyanosis, clubbing, or pedal edema. NEUROLOGICAL: Gross neurological examination did not reveal any focal deficits. SKIN: No rashes. - Labs CBC & Chem 7: 12/25/18 04:20 12/25/18 04:20 Labs: Abnormal Lab Results - Last 24 Hours (Table) 12/24/18 12/24/18 12/24/18 Range/Units 19:00 19:05 20:39 Neutrophils # (1.3-7.7) k/uL Lymphocytes # (1.0-4.8) k/uL ABG pCO2 33 L 33 L (35-45) mmHg ABG pO2 40 L* 40 L* (83-108) mmHg ABG O2 Saturation 76.1 L 76.7 L (94-97) % Chloride (98-107) mmol/L Carbon Dioxide (22-30) mmol/L Creatinine (0.66-1.25) mg/dL Glucose (74-99) mg/dL POC Glucose (mg/dL) 117 H (75-99) mg/dL 12/24/18 12/25/18 12/25/18 Range/Units 21:29 04:20 04:20 Neutrophils # 8.9 H (1.3-7.7) k/uL Lymphocytes # 0.8 L (1.0-4.8) k/uL ABG pCO2 34 L (35-45) mmHg ABG pO2 53 L* (83-108) mmHg ABG O2 Saturation 88.7 L (94-97) % Chloride 113 H (98-107) mmol/L Carbon Dioxide 19 L (22-30) mmol/L Creatinine 0.62 L (0.66-1.25) mg/dL Glucose 159 H (74-99) mg/dL POC Glucose (mg/dL) (75-99) mg/dL Microbiology - Last 24 Hours (Table) 12/24/18 15:09 Blood Culture - Preliminary Blood No Growth after 24 hours Assessment and Plan Assessment: left community bronchopneumonia acute hypoxic resp faliure secondary to above . Required BiPAP therapy o/ hypertension History of bipolar disorder Plan: this is a pleasant 48 yo M who presents with left pneumonia , c/w antibiotic, send sputum culture , blood culture . iv fluids , oxygen therapy and steroids with breathing treatment and steroids Labs and medication were reviewed.. Continue same treatment. Continue with symptomatic treatment. Resume home medication. Monitor lytes and vitals. DVT and GI prophylaxis. Further recommendations of the clinical course of the patient DVT prophylaxis: Subcutaneous heparin GI Prophylaxis: Pepcid Prognosis is guarded
[2018-12-26] MEDS: SODIUM CHLORIDE 0.9% 1,000 ML IV SCH ×3 (00:10→18:34)
[2018-12-26] MEDS: methylPREDNISolone SOD SUCCI 125 MG/2 ML VIAL IV SCH ×5 (00:10→23:35)
[2018-12-26] MEDS: CEFEPIME 2 GM in SODIUM CHLORIDE 0.9% 100 ML IVPB SCH ×4 (00:15→23:35)
[2018-12-26] MEDS: IPRATROPIUM-ALBUTEROL 3 ML NEB INHALATION SCH ×6 (03:47→23:17)
[2018-12-26] MEDS: VANCOMYCIN 2,250 MG in SODIUM CHLORIDE 0.9% 500 ML 500 ML IVPB SCH ×2 (04:56→17:34)
[2018-12-26 05:18] LABS: Basophils % (A) 0 %; Eosinophils # (A) 0.1 k/uL (0-0.7); Eosinophils % (A) 0 %; HCT 40.2 % (39.0-53.0); HGB 12.7 gm/dL (13.0-17.5); Hypochromasia Slight; Lymphocytes # (A) 1.1 k/uL (1.0-4.8); Lymphocytes % (A) 6 %; MCH 28.1 pg (25.0-35.0); MCHC 31.6 g/dL (31.0-37.0); Mean Platelet Volume 6.9; Monocytes # (A) 0.5 k/uL (0-1.0); Monocytes % (A) 3 %; Neutrophils # (A) 17.6 k/uL (1.3-7.7); Neutrophils % (A) 91 %; Platelet Count 261 k/uL (150-450); RBC 4.52 m/uL (4.30-5.90); RDW 15.5 % (11.5-15.5); WBC 19.3 k/uL (3.8-10.6)
[2018-12-26 05:37] LABS: Anion Gap 9 mmol/L; Blood Urea Nitrogen 20 mg/dL (9-20); Calcium 8.9 mg/dL (8.4-10.2); Carbon Dioxide 21 mmol/L (22-30); Chloride 114 mmol/L (98-107); Glucose 150 mg/dL (74-99); Magnesium 2.2 mg/dL (1.6-2.3); Phosphorus 3.9 mg/dL (2.5-4.5); Potassium 4.5 mmol/L (3.5-5.1); Sodium 144 mmol/L (137-145)
--- NOTE | 2018-12-26 08:07 | XR ---
EXAMINATION TYPE: XR chest 1V DATE OF EXAM: 12/26/2018 COMPARISON: 12/25/2018 HISTORY: 48 year-old male shortness of breath TECHNIQUE: Single frontal view of the chest is obtained. FINDINGS: Heart borderline enlarged. Focal left mid and lower lung opacity shows slight improvement. Right lung and pleural space are relatively clear. IMPRESSION: Borderline heart size. Persistent but improving airspace disease left mid and lower lung.
[2018-12-26] MEDS: SERTRALINE 25 MG TAB PO SCH (08:38)
[2018-12-26] MEDS: METOPROLOL TARTRATE 50 MG TAB PO SCH ×2 (08:38→20:54)
[2018-12-26] MEDS: DILTIAZEM CD 120 MG CAP.ER.24H PO SCH (08:38)
[2018-12-26] MEDS: TRIHEXYPHENIDYL 2 MG TAB PO SCH ×2 (08:38→20:54)
[2018-12-26] MEDS: LITHIUM CARBONATE 300 MG CAP PO SCH ×2 (08:38→20:54)
[2018-12-26] MEDS: ASPIRIN 81 MG PO SCH (08:38)
[2018-12-26] MEDS: ARIPiprazole 15 MG TAB PO SCH (08:38)
[2018-12-26] MEDS: HEPARIN SODIUM,PORCINE 5,000 UNIT/ML 1 ML VIAL SQ SCH ×2 (08:39→20:53)
[2018-12-26] MEDS: FAMOTIDINE 20 MG/2 ML VIAL IV SCH ×2 (08:39→20:53)
[2018-12-26] MEDS: MULTIVITAMINS, THERA 1 EACH TAB PO SCH (12:31)
--- NOTE | 2018-12-26 12:54 | P.PN ---
Subjective Progress Note Date: 12/26/18 Principal diagnosis: extensive left sided pneumonia and acute hypoxic respiratory failure this is a 48-year-old white male with history of hypertension, bipolar disorder, presented to the ER last night mostly with 1 week history of shortness of breath , cough, and not feeling well. Patient denies any fever, no chills, no hemoptysis, no chest pain. Patient is not the greatest historian. But nonetheless his chest x-ray in the ER showed extensive pneumonic process involving most of the left lung.this was confirmed by high-resolution CT of the chest, which showed significant airspace consolidation in the left lung, left upper lobe, left lower lobe, no evidence of hilar mass, no mediastinal adenopathy. Patient was noted to be quite hypoxic upon arrival to the ER, and his ABG reflected significant hypoxia with a pO2 of 40on 4 L nasal cannula, follow-up ABG on a high flow nasal cannula showed a pO2 of 53 pCO2 of 34 pH of 7.43. And this was on 80% FiO2. Patient was then switched to BiPAP, and he was kept on BiPAP overnight. In the meantime I have recommended changing the antibiotics to vancomycin and cefepime, I have also recommended Solu-Medrol 60 mg IV push every 6 hours, and recommended bronchodilators as ordered. Patient was admitted to the ICU history of going to the medical floor, and I saw him this morning. Feeling slightly better, he was still on BiPAP with IPAP of 10 and EPAP of 5, and FiO2 was 80%. I did cut down his FiO2 from 80% to 60%. Reviewed his follow-up chest x-ray which is basically about the same. Clinically however the patient is feeling better, breathing easier, and his clinical picture does not correlate with his labs and ABG.patient denies any headaches no blurred vision no dizziness. Denies any chest pain, no nausea no vomiting no abdominal pain. No melena no hematemesis no dysuria and frequency. No symptoms of osteoarthritis. He is known to have history of what seems to be bipolar disorder and he is on multiple psychiatric medications. Patient was reevaluated today on 12/26/2018, remains in the ICU, remains on high flow oxygen, actually he is on airvo at 60 L/m, and 60% FiO2. His O2 saturation is in the mid 90s, patient is feeling a lot better, denies any cough denies any wheezing, no shortness of breath. Patient was relatively asymptomatic even when he had a pO2 of 40 upon presentation to the ER. Chest x- ray was reviewed and clearly shows significant improvement in his left sided pneumonia. Patient remains on extensive course of antibiotics, I will discontinue Zithromax today, I would continue cefepime and vancomycin, and I will keep the patient in the ICU today.WBC count today is 19.3, patient is on steroids for his wheezing upon presentation. His basic metabolic profile is relatively normal.cultures so far remain negative. And that is mostly blood cultures. Influenza screen was negative on admission. Objective - Vital Signs Vital signs: Vital Signs Temp 97.9 F 12/26/18 12:00 Pulse 91 12/26/18 12:00 Resp 25 H 12/26/18 12:00 BP 119/62 12/26/18 12:00 Pulse Ox 91 L 12/26/18 12:00 Intake & Output 12/25/18 12/26/18 12/26/18 18:59 06:59 18:59 Intake Total 2380 2384 1247 Output Total 650 1650 Balance 4183 976 6064 Weight 132.9 kg Intake: IV 1400 1384 667 Cefepime 2 gm In Sodium 200 100 Chloride 0.9% 100 ml @ 200 mls/hr IVPB Q8HR [facility] Rx#:[id number] Sodium Chloride 0.9% 1, 1200 950 500 000 ml @ 100 mls/hr IV . Q10H [facility] Rx#:[id number] Vancomycin 2,250 mg In 334 167 Sodium Chloride 0.9% 500 ml 500 ml @ 167 mls/hr IVPB Q12H [facility] Rx#: [id number] Intake, IV Titration 500 Amount Vancomycin 2,250 mg In 500 Sodium Chloride 0.9% 500 ml 500 ml @ 167 mls/hr IVPB Q12H [facility] Rx#: [id number] Oral 480 1000 480 TPN/PPN 100 Cefepime 2 gm In Sodium 100 Chloride 0.9% 100 ml @ 200 mls/hr IVPB Q8HR [facility] Rx#:[id number] Output: Urine 650 1650 Other: Voiding Method Urinal Urinal # Voids 0 1 - Exam Physical Exam: Revealed a 48-year-old white male, obese, on airvo at 60% and 60 L/m flow. Head: Atraumatic, normocephalic HEENT:[Neck is supple.] [No neck masses.] [No thyromegaly.] [No JVD.]PERRLA, EOMI, no icterus. Chest: [clear on the right side, no crackles or rhonchi and wheezes, however rhonchi noted on the left side especially with forced expiratory maneuver. No chest wall tenderness, symmetrical chest expansion noted. Cardiac Exam: [Normal S1 and S2, no S3 gallop, no murmur.] Abdomen: [obese,Soft, nontender, no megaly, no rebound, no guarding, normal bowel sounds.] Extremities: [No clubbing, no edema, no cyanosis.] Neurological Exam: No focal neurologic deficit.alert oriented 3. Psychiatric: Normal mood, affect and mental status examination. lymphatics: No lymphadenopathy. Skin: No rashes. - Labs CBC & Chem 7: 12/26/18 05:00 12/26/18 05:00 Labs: Abnormal Lab Results - Last 24 Hours (Table) 12/26/18 12/26/18 Range/Units 05:00 05:00 WBC 19.3 H (3.8-10.6) k/uL Hgb 12.7 L (13.0-17.5) gm/dL Neutrophils # 17.6 H (1.3-7.7) k/uL Chloride 114 H (98-107) mmol/L Carbon Dioxide 21 L (22-30) mmol/L Creatinine 0.63 L (0.66-1.25) mg/dL Glucose 150 H (74-99) mg/dL Microbiology - Last 24 Hours (Table) 12/24/18 22:23 Blood Culture - Preliminary Blood No Growth after 24 hours 12/24/18 22:01 Blood Culture - Preliminary Blood No Growth after 24 hours 12/24/18 15:09 Blood Culture - Preliminary Blood No Growth after 24 hours Assessment and Plan Assessment: impression: 1 acute hypoxic respiratory failure secondary to extensive left sided pneumonia , community-acquired. 2 reactive bronchospasm as noted on physical examination. 3 history of bipolar disorder 4 history of benign essential hypertension. Recommendation:continue present antibiotics/ cefepime, and vancomycin. discontinue Zithromax. considering the severity of the pneumonia and the profound hypoxia noted on presentation, I recommended that would broaden the spectrum of antibiotics as much as possible,continue bronchodilators, steroids, continue to monitor in the ICU considering his profound hypoxia..the patient presently remains on airvo titrate FiO2, keep saturation above 90%. Patient was resumed on his usual psychiatric medications, repeat chest x-ray in a.m., and possibly transferred to a regular medical floor in the next 24 hours. Patient remains critically ill, and I prefer to keep him in the ICU today. Time with Patient: Less than 30
--- NOTE | 2018-12-26 13:09 | P.PN ---
Subjective this is a pleasant 48 yo M with pmh of hypertension presents with dyspena of one week duration associatd with tirelness and coughing with little or no phlegms.. and no chest pain .. no sneezing or dizziness, no change in urine or bowel habits , no fever. on admission his oxygen saturation was dropping to 80s. rest ofvitals looks stable, and labs reviewed showing mild leukocytosis of 11.3K and some tachypnea where herat rate goes into twenties. PO2 in ABG drops to 40. influenza is negative and BMP is unremarkable. CXR shows left pneumonia, multifocal. CT of the thorax showing left bronchopneumonia with small bilateral pleural effusion . pt was started on ceftriaxone and zithromax, and iv fluids . oxgyen therapy is requested 12/25/2018 Patient was transferred to the ICU yesterday overnight for patient was hypoxic and there was risk been intubated. Today he was seen in the ICU patient was on BiPAP tolerating that well. He was fully awake and oriented and he is feeling the same as yesterday not in respiratory distress, no chest pain, no significant dyspnea, however he did oxygen therapy to came is saturating up. Flaps looks stable blood culture no growth, patient does not make sputum. Patient currently on cefepime and vancomycin and Zithromax. 12/26/2018 Patient remains in the ICU with improvement in his ventilation as he needed this prior to through his airvo nasal cannula. Patient remains on cefepime maintenance vancomycin, stop Zithromax. Pulmonary following the case and the recommendation to repeat chest x-ray tomorrow and is a stable he become transferred to the general medical floor. Vitals are stable. He has some leukocytosis with WBC went up to 19.3 K, mostly due to effect of steroids. BMP was unremarkable. Cultures been followed up Objective - Vital Signs Vital signs: Vital Signs Temp 97.9 F 12/26/18 12:00 Pulse 91 12/26/18 12:00 Resp 25 H 12/26/18 12:00 BP 119/62 12/26/18 12:00 Pulse Ox 91 L 12/26/18 12:00 Intake & Output 12/25/18 12/26/18 12/26/18 18:59 06:59 18:59 Intake Total 2380 2384 1247 Output Total 650 1650 Balance 8912 486 8868 Weight 132.9 kg Intake: IV 1400 1384 667 Cefepime 2 gm In Sodium 200 100 Chloride 0.9% 100 ml @ 200 mls/hr IVPB Q8HR [facility] Rx#:[id number] Sodium Chloride 0.9% 1, 1200 950 500 000 ml @ 100 mls/hr IV . Q10H [facility] Rx#:[id number] Vancomycin 2,250 mg In 334 167 Sodium Chloride 0.9% 500 ml 500 ml @ 167 mls/hr IVPB Q12H [facility] Rx#: [id number] Intake, IV Titration 500 Amount Vancomycin 2,250 mg In 500 Sodium Chloride 0.9% 500 ml 500 ml @ 167 mls/hr IVPB Q12H [facility] Rx#: [id number] Oral 480 1000 480 TPN/PPN 100 Cefepime 2 gm In Sodium 100 Chloride 0.9% 100 ml @ 200 mls/hr IVPB Q8HR [facility] Rx#:[id number] Output: Urine 650 1650 Other: Voiding Method Urinal Urinal # Voids 0 1 - Exam GENERAL: The patient is alert and oriented x3, not in any acute distress. Well developed, well nourished. HEENT: Pupils are round and equally reacting to light. EOMI. No scleral icterus. No conjunctival pallor. Normocephalic, atraumatic. No pharyngeal erythema. No thyromegaly. CARDIOVASCULAR: S1 and S2 present. No murmurs, rubs, or gallops. -PULMONARY: Chest is clear to auscultation, no wheezing or crackles. decreased breath sounds on the left lower side ABDOMEN: Soft, nontender, nondistended, normoactive bowel sounds. No palpable organomegaly. MUSCULOSKELETAL: No joint swelling or deformity. EXTREMITIES: No cyanosis, clubbing, or pedal edema. NEUROLOGICAL: Gross neurological examination did not reveal any focal deficits. SKIN: No rashes. - Labs CBC & Chem 7: 12/26/18 05:00 12/26/18 05:00 Labs: Abnormal Lab Results - Last 24 Hours (Table) 12/26/18 12/26/18 Range/Units 05:00 05:00 WBC 19.3 H (3.8-10.6) k/uL Hgb 12.7 L (13.0-17.5) gm/dL Neutrophils # 17.6 H (1.3-7.7) k/uL Chloride 114 H (98-107) mmol/L Carbon Dioxide 21 L (22-30) mmol/L Creatinine 0.63 L (0.66-1.25) mg/dL Glucose 150 H (74-99) mg/dL Microbiology - Last 24 Hours (Table) 12/24/18 22:23 Blood Culture - Preliminary Blood No Growth after 24 hours 12/24/18 22:01 Blood Culture - Preliminary Blood No Growth after 24 hours 12/24/18 15:09 Blood Culture - Preliminary Blood No Growth after 24 hours Assessment and Plan Assessment: left community bronchopneumonia acute hypoxic resp faliure secondary to above . Required BiPAP therapy o/ hypertension History of bipolar disorder Plan: this is a pleasant 48 yo M who presents with left pneumonia , c/w antibiotic, send sputum culture , blood culture . iv fluids , oxygen therapy and steroids with breathing treatment and steroids Labs and medication were reviewed.. Continue same treatment. Continue with symptomatic treatment. Resume home medication. Monitor lytes and vitals. DVT and GI prophylaxis. Further recommendations of the clinical course of the patient DVT prophylaxis: Subcutaneous heparin GI Prophylaxis: Pepcid Prognosis is guarded
[2018-12-26] MEDS: QUEtiapine 100 MG TAB PO SCH (17:33)
[2018-12-27] MEDS: IPRATROPIUM-ALBUTEROL 3 ML NEB INHALATION SCH ×6 (03:08→23:54)
[2018-12-27] MEDS ORDERED: VANCOMYCIN TROUGH DUE 1 EACH MISC MISCELLANE ONE (04:00)
[2018-12-27] MEDS: SODIUM CHLORIDE 0.9% 1,000 ML IV SCH ×2 (05:05→08:49)
[2018-12-27 05:08] LABS: Basophils % (A) 0 %; Eosinophils % (A) 0 %; HGB 12.6 gm/dL (13.0-17.5); Hypochromasia Moderate; Lymphocytes % (A) 6 %; MCH 28.4 pg (25.0-35.0); MCHC 31.5 g/dL (31.0-37.0); MCV 90.2 fL (80.0-100.0); Mean Platelet Volume 7.3; Monocytes # (A) 0.5 k/uL (0-1.0); Monocytes % (A) 3 %; Neutrophils # (A) 15.6 k/uL (1.3-7.7); Neutrophils % (A) 90 %; Platelet Count 247 k/uL (150-450); RBC 4.43 m/uL (4.30-5.90); RDW 15.5 % (11.5-15.5); WBC 17.3 k/uL (3.8-10.6)
[2018-12-27] MEDS: VANCOMYCIN 2,250 MG in SODIUM CHLORIDE 0.9% 500 ML 500 ML IVPB SCH ×2 (05:10→06:12)
[2018-12-27] MEDS: methylPREDNISolone SOD SUCCI 125 MG/2 ML VIAL IV SCH (05:10)
[2018-12-27 05:14] LABS: Anion Gap 8 mmol/L; Blood Urea Nitrogen 20 mg/dL (9-20); Calcium 8.6 mg/dL (8.4-10.2); Carbon Dioxide 19 mmol/L (22-30); Chloride 116 mmol/L (98-107); Glucose 125 mg/dL (74-99); Magnesium 2.4 mg/dL (1.6-2.3); Phosphorus 3.2 mg/dL (2.5-4.5); Potassium 4.5 mmol/L (3.5-5.1); Sodium 143 mmol/L (137-145)
--- NOTE | 2018-12-27 07:47 | XR ---
EXAMINATION TYPE: XR chest 1V DATE OF EXAM: 12/27/2018 COMPARISON: 12/26/2018 HISTORY: 48-year-old male shortness of breath TECHNIQUE: Single frontal view of the chest is obtained. FINDINGS: Heart remains borderline, now mildly enlarged. Patchy left mid and lower lung opacity persists. Possi ble trace left effusion. IMPRESSION: 1. Borderline to mild cardiomegaly. 2. Persistent airspace disease left mid and lower lung. 3. Trace left effusion.
[2018-12-27] MEDS: HEPARIN SODIUM,PORCINE 5,000 UNIT/ML 1 ML VIAL SQ SCH (08:49)
[2018-12-27] MEDS: CEFEPIME 2 GM in SODIUM CHLORIDE 0.9% 100 ML IVPB SCH (08:49)
[2018-12-27] MEDS: FAMOTIDINE 20 MG/2 ML VIAL IV SCH (08:49)
[2018-12-27] MEDS: SERTRALINE 25 MG TAB PO SCH (08:50)
[2018-12-27] MEDS: METOPROLOL TARTRATE 50 MG TAB PO SCH ×2 (08:50→20:44)
[2018-12-27] MEDS: ASPIRIN 81 MG PO SCH (08:50)
[2018-12-27] MEDS: TRIHEXYPHENIDYL 2 MG TAB PO SCH ×2 (08:50→20:45)
[2018-12-27] MEDS: ARIPiprazole 15 MG TAB PO SCH (08:50)
[2018-12-27] MEDS: DILTIAZEM CD 120 MG CAP.ER.24H PO SCH (08:50)
[2018-12-27] MEDS: LITHIUM CARBONATE 300 MG CAP PO SCH ×2 (08:50→20:44)
--- NOTE | 2018-12-27 10:03 | PN ---
PROGRESS NOTE DATE OF SERVICE: December 27, 2018 CRITICAL CARE TIME: 31 minutes. This is a 48-year-old male who was admitted on the with a diagnosis of bilateral pneumonia. Initially, he had profound hypoxemic respiratory failure, required BiPAP therapy. More recently, he has been placed on the AIRVO at 50 L/minute and estimated FiO2 50%. The patient is receiving an IV of 0.9 just at KVO. His chest x-ray shows bilateral pneumonia, mostly on the left side. Microbiology thus far is negative. The patient has a history of hypertension and has also some psychiatric issues including schizophrenia and bipolar disorder and depression. Anyway, the patient is currently resting relatively comfortable. He states he is feeling okay. Still feels winded and short of breath. Occasional coughing. Not producing much phlegm. Chest x-ray is reviewed. It looks similar to the x-ray from yesterday. In addition to his acute hypoxemic respiratory failure, the patient has reactive bronchospasm and bronchial inflammation as well as benign essential hypertension , bipolar disorder, schizophrenia, and depression. Current vital signs temperature 97.6, heart rate 87, respiratory rate 18, blood pressure 140/83, mean 102. Saturations are only 90% to 91% percent on 50 L/ minute on the AIRVO at 50% FiO2. Appears mildly tachypneic and dyspneic. No acute respiratory distress though. HEENT examination is grossly unremarkable. AIRVO in place. NECK: Supple. Full range of motion. No adenopathy, thyromegaly or neck vein distention. Cardiovascular examination reveals regular rhythm and rate. Heart rate 87 up to 100 beats per minute. S1, S2 normal. No murmur. Heart sounds are somewhat diminished. Pulmonary examination reveals diffuse coarse expiratory rhonchi bilaterally. Breath sounds are diminished. Some scattered crackles noted. No wheezes. Abdomen is obese. Bowel sounds are heard. Extremities are intact. Mild edema noted. Skin without rash. Neurologic examination is brief but nonfocal. Microbiologic data is negative. Labs are reviewed. White count 17.3, hemoglobin 12.6, hematocrit 40.0, platelet count 247,000. Blood gases on the show pO2 of only 53, pCO2 of 34, and pH is 7.43. This is on FiO2 of 80%. Sodium 143, potassium 4.5, chloride 116, CO2 of 19, anion gap is 8. BUN and creatinine were 20 and 0.53. His blood gases consistent with a hyperchloremic non-anion gap metabolic acidosis. Probably secondary to significant sodium chloride administration. Medications are reviewed. Currently, he is on Maxipime, updrafts, Solu-Medrol and vancomycin. ASSESSMENT: 1. Acute hypoxemic respiratory failure secondary to bilateral pneumonia, left greater than right, community acquired. 2. Reactive bronchospasm and bronchial inflammation. 3. Non-anion gap hyperchloremic metabolic acidosis. 4. History of bipolar disorder. 5. Schizophrenia. 6. Depression. 7. History of benign essential hypertension. 8. Obesity. PLAN: The patient's antibiotics are more than adequate. They probably could be deescalated a bit. Infectious disease is not on the case. We will continue to follow. Prognosis is guarded. The patient's hypoxemia is quite a concern. We will review his medications. Unnecessary medications will be discontinued. Antibiotics are adjusted to reflect treatment of CAP. Steroids are reduced. CRITICAL CARE TIME: 31 minutes. YOANNA / ISABELL: [id number] / ORESTES
[2018-12-27] MEDS: MULTIVITAMINS, THERA 1 EACH TAB PO SCH (13:15)
[2018-12-27] MEDS ORDERED: VANCOMYCIN 2,250 MG in SODIUM CHLORIDE 0.9% 500 ML 500 ML IVPB SCH (14:00)
[2018-12-27] MEDS: methylPREDNISolone SOD SUCCI 40 MG/ML 1 ML VIAL IV SCH ×2 (16:33→23:16)
[2018-12-27 17:18] LABS: Iron Saturation 3.79 (15.00-50.00)
[2018-12-27] MEDS: QUEtiapine 100 MG TAB PO SCH (17:36)
[2018-12-27] MEDS: FAMOTIDINE 20 MG TAB PO SCH (20:44)
--- NOTE | 2018-12-28 00:36 | P.PN ---
Subjective this is a pleasant 48 yo M with pmh of hypertension presents with dyspena of one week duration associatd with tirelness and coughing with little or no phlegms.. and no chest pain .. no sneezing or dizziness, no change in urine or bowel habits , no fever. on admission his oxygen saturation was dropping to 80s. rest ofvitals looks stable, and labs reviewed showing mild leukocytosis of 11.3K and some tachypnea where herat rate goes into twenties. PO2 in ABG drops to 40. influenza is negative and BMP is unremarkable. CXR shows left pneumonia, multifocal. CT of the thorax showing left bronchopneumonia with small bilateral pleural effusion . pt was started on ceftriaxone and zithromax, and iv fluids . oxgyen therapy is requested 12/25/2018 Patient was transferred to the ICU yesterday overnight for patient was hypoxic and there was risk been intubated. Today he was seen in the ICU patient was on BiPAP tolerating that well. He was fully awake and oriented and he is feeling the same as yesterday not in respiratory distress, no chest pain, no significant dyspnea, however he did oxygen therapy to came is saturating up. Flaps looks stable blood culture no growth, patient does not make sputum. Patient currently on cefepime and vancomycin and Zithromax. 12/26/2018 Patient remains in the ICU with improvement in his ventilation as he needed this prior to through his airvo nasal cannula. Patient remains on cefepime maintenance vancomycin, stop Zithromax. Pulmonary following the case and the recommendation to repeat chest x-ray tomorrow and is a stable he become transferred to the general medical floor. Vitals are stable. He has some leukocytosis with WBC went up to 19.3 K, mostly due to effect of steroids. BMP was unremarkable. Cultures been followed up 12/27/2018 pt remains in icu, feels the same since admission , which is no symptom . he is on airvo, pt is expected to need less FiO2, he remains hypoxic and pulmonary service are following , his medication were adjusted. will keep monitoring closely in icu currently Objective - Vital Signs Vital signs: Vital Signs Temp 97.9 F 12/27/18 16:00 Pulse 78 12/27/18 20:25 Resp 19 12/27/18 19:00 BP 147/80 12/27/18 19:00 Pulse Ox 93 L 12/27/18 19:00 Intake & Output 12/27/18 12/27/18 12/28/18 06:59 18:59 06:59 Intake Total 1300 1420 20 Output Total 1600 1450 Balance -300 -30 20 Weight 134.1 kg Intake: IV 1300 580 20 Cefepime 2 gm In Sodium 100 100 Chloride 0.9% 100 ml @ 200 mls/hr IVPB Q8HR [facility] Rx#:[id number] Sodium Chloride 0.9% 1, 1200 480 20 000 ml @ 20 mls/hr IV . Q24H [facility] Rx#:[id number] Oral 840 Output: Urine 1600 1450 Other: Voiding Method Urinal Urinal Urinal # Voids 1 - Exam GENERAL: The patient is alert and oriented x3, not in any acute distress. Well developed, well nourished. HEENT: Pupils are round and equally reacting to light. EOMI. No scleral icterus. No conjunctival pallor. Normocephalic, atraumatic. No pharyngeal erythema. No thyromegaly. CARDIOVASCULAR: S1 and S2 present. No murmurs, rubs, or gallops. -PULMONARY: Chest is clear to auscultation, no wheezing or crackles. decreased breath sounds on the left lower side ABDOMEN: Soft, nontender, nondistended, normoactive bowel sounds. No palpable organomegaly. MUSCULOSKELETAL: No joint swelling or deformity. EXTREMITIES: No cyanosis, clubbing, or pedal edema. NEUROLOGICAL: Gross neurological examination did not reveal any focal deficits. SKIN: No rashes. - Labs CBC & Chem 7: 12/27/18 04:16 12/27/18 04:16 Labs: Abnormal Lab Results - Last 24 Hours (Table) 12/27/18 12/27/18 12/27/18 Range/Units 04:16 04:16 04:16 WBC 17.3 H (3.8-10.6) k/uL Hgb 12.6 L (13.0-17.5) gm/dL Neutrophils # 15.6 H (1.3-7.7) k/uL Chloride 116 H (98-107) mmol/L Carbon Dioxide 19 L (22-30) mmol/L Creatinine 0.53 L (0.66-1.25) mg/dL Glucose 125 H (74-99) mg/dL Magnesium 2.4 H (1.6-2.3) mg/dL Iron 14 L (65-175) ug/dL Iron Saturation 3.79 L (15.00-50.00) Ferritin 17.5 L (22.0-322.0) ng/mL Microbiology - Last 24 Hours (Table) 12/24/18 15:09 Blood Culture - Preliminary Blood No Growth after 72 hours 12/25/18 19:55 Gram Stain - Preliminary Sputum Sputum Culture - Preliminary 12/24/18 22:23 Blood Culture - Preliminary Blood No Growth after 48 hours 12/24/18 22:01 Blood Culture - Preliminary Blood No Growth after 48 hours Assessment and Plan Assessment: left community bronchopneumonia acute hypoxic resp faliure secondary to above . Required BiPAP therapy o/ hypertension History of bipolar disorder Plan: this is a pleasant 48 yo M who presents with left pneumonia , c/w antibiotic, send sputum culture , blood culture . iv fluids , oxygen therapy and steroids with breathing treatment and steroids Labs and medication were reviewed.. Continue same treatment. Continue with symptomatic treatment. Resume home medication. Monitor lytes and vitals. DVT and GI prophylaxis. Further recommendations of the clinical course of the patient DVT prophylaxis: Subcutaneous heparin GI Prophylaxis: Pepcid Prognosis is guarded
[2018-12-28] MEDS: IPRATROPIUM-ALBUTEROL 3 ML NEB INHALATION SCH ×6 (03:04→23:28)
[2018-12-28 04:58] LABS: Basophils % (A) 0 %; Eosinophils % (A) 0 %; HCT 39.9 % (39.0-53.0); HGB 12.1 gm/dL (13.0-17.5); Hypochromasia Slight; Lymphocytes # (A) 1.1 k/uL (1.0-4.8); Lymphocytes % (A) 8 %; MCH 27.4 pg (25.0-35.0); MCHC 30.5 g/dL (31.0-37.0); MCV 89.8 fL (80.0-100.0); Mean Platelet Volume 7.5; Monocytes # (A) 0.5 k/uL (0-1.0); Monocytes % (A) 3 %; Neutrophils # (A) 12.1 k/uL (1.3-7.7); Neutrophils % (A) 88 %; Platelet Count 236 k/uL (150-450); RBC 4.44 m/uL (4.30-5.90); RDW 15.3 % (11.5-15.5); WBC 13.8 k/uL (3.8-10.6)
[2018-12-28 05:17] LABS: Anion Gap 8 mmol/L; Blood Urea Nitrogen 22 mg/dL (9-20); Calcium 8.5 mg/dL (8.4-10.2); Carbon Dioxide 21 mmol/L (22-30); Chloride 113 mmol/L (98-107); Glucose 124 mg/dL (74-99); Magnesium 2.5 mg/dL (1.6-2.3); Phosphorus 3.8 mg/dL (2.5-4.5); Potassium 4.6 mmol/L (3.5-5.1); Sodium 142 mmol/L (137-145)
[2018-12-28] MEDS: SODIUM CHLORIDE 0.9% 1,000 ML IV SCH (06:34)
--- NOTE | 2018-12-28 07:30 | XR ---
EXAMINATION TYPE: XR chest 1V DATE OF EXAM: 12/28/2018 COMPARISON: 12/27/2018 HISTORY: Shortness of breath TECHNIQUE: Single frontal view of the chest is obtained. FINDINGS: There is improving left midlung and basilar airspace disease as the left hemidiaphragm is now visualized. Remainder the lungs are clear. Heart is mildly enlarged. No sizable pleural effusion or pneumothorax. Moderate degenerative changes of the thoracic spine. Osseous structures are grossly intact. IMPRESSION: Improving left midlung and left basilar airspace disease.
[2018-12-28] MEDS: methylPREDNISolone SOD SUCCI 40 MG/ML 1 ML VIAL IV SCH ×2 (08:23→16:13)
[2018-12-28] MEDS: ASPIRIN 81 MG PO SCH (08:24)
[2018-12-28] MEDS: ARIPiprazole 15 MG TAB PO SCH (08:24)
[2018-12-28] MEDS: METOPROLOL TARTRATE 50 MG TAB PO SCH ×2 (08:24→21:19)
[2018-12-28] MEDS: FAMOTIDINE 20 MG TAB PO SCH ×2 (08:24→21:18)
[2018-12-28] MEDS: AZITHROMYCIN 500 MG TAB PO SCH (08:25)
[2018-12-28] MEDS: LITHIUM CARBONATE 300 MG CAP PO SCH ×2 (08:26→21:19)
[2018-12-28] MEDS: TRIHEXYPHENIDYL 2 MG TAB PO SCH ×2 (08:26→21:19)
[2018-12-28] MEDS: DILTIAZEM CD 120 MG CAP.ER.24H PO SCH (08:26)
[2018-12-28] MEDS: SERTRALINE 25 MG TAB PO SCH (08:26)
[2018-12-28] MEDS ORDERED: FUROSEMIDE 10 MG/ML 4 ML VIAL IV STA (09:23)
--- NOTE | 2018-12-28 09:43 | PN ---
PROGRESS NOTE A 48-year-old male admitted on the with a diagnosis of bilateral pneumonia. Most of his infiltrate is on the left side. His chest x-ray today actually shows improvement. He remains on AIRVO. He is at 45 L/minute with an estimated FiO2 of 39%. We are going to give him Lasix 40 mg IV push today. The patient could be transferred out to the general medical floor without telemetry. We are going to shut off his IV as well. He is receiving antibiotics. Microbiology as of yesterday was negative. He has had an uneventful night. His complaints include primarily shortness of breath, cough and some chest congestion. Not really producing much or any phlegm. The patient has a history of benign essential hypertension, bipolar disorder, schizophrenia and depression. Current vital signs are reviewed. His temperature is 97.9, heart rate 78, respiratory rate 16, blood pressure 149/92 with a mean of 111, saturations are 96% on 45 L/ minute and an estimated FiO2 of 39% to 40%. Appears in no acute distress. Has not looked really bad for the last couple of days. No conversational dyspnea. No use of accessory muscles. No audible wheeze. HEENT examination is grossly unremarkable. AIRVO device in place. NECK: Supple. Full range of motion. No adenopathy or thyromegaly. Neck veins are flat. Cardiovascular examination reveals regular rhythm and rate. S1, S2 normal. No S3, S4, or murmur. Lungs reveal a few scattered coarse rhonchi. No wheezes. No crackles. Breath sounds are equal bilaterally. Abdomen is soft. Bowel sounds are heard. No masses or tenderness. Extremities are intact. No cyanosis, clubbing, or edema. Skin without rash. Neurologic examination is brief but nonfocal. Microbiologic data including sputum and blood sampling has all been negative. Chest x-ray today shows persistent infiltrates in the left mid lung, the left lower lobe primarily which have improved somewhat. Labs are reviewed. White count 13.8, hemoglobin 12.1, hematocrit 39.9, platelet count 236,000. Sodium 142, potassium 4.6, chloride 113, CO2 of 21, BUN and creatinine 22 and 0.63. Urinary legionella antigen was negative. The patient remains on antibiotics in the form of Zithromax and Rocephin. Rest of the medications are reviewed. Vancomycin was discontinued. ASSESSMENT: 1. Acute hypoxemic respiratory failure secondary to bilateral pneumonia, left greater than right, community acquired. 2. Reactive bronchospasm and bronchial inflammation, much improved. 3. Non-anion gap hyperchloremic metabolic acidosis. 4. History of bipolar disorder. 5. History of schizophrenia. 6. History of depression. 7. History of benign essential hypertension. 8. Obesity. PLAN: We will see if we cannot wean his AIRVO. The patient might benefit from high- flow nasal O2. We might even be able to get him to regular nasal cannula. The patient could be transferred out to the general medical floor without telemetry. Because of some mild edema, the patient will receive some Lasix 40 mg IV push. We will discontinue his IV. He is not needing IV fluids. He is eating well. He is drinking well. We will continue to follow closely. Prognosis is guarded. Continue antibiotics, breathing treatments, etc. No additional recommendations are made. YOANNA / KANEN: [id number] / MTDD
[2018-12-28] MEDS: MULTIVITAMINS, THERA 1 EACH TAB PO SCH (12:45)
[2018-12-28] MEDS: QUEtiapine 100 MG TAB PO SCH (16:14)
--- NOTE | 2018-12-28 22:53 | P.PN ---
Subjective this is a pleasant 48 yo M with pmh of hypertension presents with dyspena of one week duration associatd with tirelness and coughing with little or no phlegms.. and no chest pain .. no sneezing or dizziness, no change in urine or bowel habits , no fever. on admission his oxygen saturation was dropping to 80s. rest ofvitals looks stable, and labs reviewed showing mild leukocytosis of 11.3K and some tachypnea where herat rate goes into twenties. PO2 in ABG drops to 40. influenza is negative and BMP is unremarkable. CXR shows left pneumonia, multifocal. CT of the thorax showing left bronchopneumonia with small bilateral pleural effusion . pt was started on ceftriaxone and zithromax, and iv fluids . oxgyen therapy is requested 12/25/2018 Patient was transferred to the ICU yesterday overnight for patient was hypoxic and there was risk been intubated. Today he was seen in the ICU patient was on BiPAP tolerating that well. He was fully awake and oriented and he is feeling the same as yesterday not in respiratory distress, no chest pain, no significant dyspnea, however he did oxygen therapy to came is saturating up. Flaps looks stable blood culture no growth, patient does not make sputum. Patient currently on cefepime and vancomycin and Zithromax. 12/26/2018 Patient remains in the ICU with improvement in his ventilation as he needed this prior to through his airvo nasal cannula. Patient remains on cefepime maintenance vancomycin, stop Zithromax. Pulmonary following the case and the recommendation to repeat chest x-ray tomorrow and is a stable he become transferred to the general medical floor. Vitals are stable. He has some leukocytosis with WBC went up to 19.3 K, mostly due to effect of steroids. BMP was unremarkable. Cultures been followed up 12/27/2018 pt remains in icu, feels the same since admission , which is no symptom . he is on airvo, pt is expected to need less FiO2, he remains hypoxic and pulmonary service are following , his medication were adjusted. will keep monitoring closely in icu currently 12/28/18 pt respiratory status keep improving, repeat CXR shows improving in the aeration of his left lung and his pneumonia, pt is expected to move of icu soon if he keep to improve. pt yesterday reported blood in stool, occult blood test was ordered but pt did not have bowel movement as he told me yet. iron studies shows iron deficincy anemia, we will consult GI team for further evaluation . Hb 12.1 Objective - Vital Signs Vital signs: Vital Signs Temp 97.6 F 12/28/18 15:00 Pulse 77 12/28/18 21:11 Resp 20 12/28/18 15:00 BP 146/90 12/28/18 15:00 Pulse Ox 97 12/28/18 20:57 Intake & Output 12/28/18 12/28/18 12/29/18 06:59 18:59 06:59 Intake Total 260 480 460 Output Total 675 3400 Balance -415 -2920 460 Weight 134.6 kg Intake: IV 260 Sodium Chloride 0.9% 1, 260 000 ml @ 20 mls/hr IV . Q24H [facility] Rx#:[id number] Oral 480 460 Output: Urine 675 3400 Other: Voiding Method Urinal Urinal # Voids 1 1 - Exam GENERAL: The patient is alert and oriented x3, not in any acute distress. Well developed, well nourished. HEENT: Pupils are round and equally reacting to light. EOMI. No scleral icterus. No conjunctival pallor. Normocephalic, atraumatic. No pharyngeal erythema. No thyromegaly. CARDIOVASCULAR: S1 and S2 present. No murmurs, rubs, or gallops. -PULMONARY: Chest is clear to auscultation, no wheezing or crackles. decreased breath sounds on the left lower side ABDOMEN: Soft, nontender, nondistended, normoactive bowel sounds. No palpable organomegaly. MUSCULOSKELETAL: No joint swelling or deformity. EXTREMITIES: No cyanosis, clubbing, or pedal edema. NEUROLOGICAL: Gross neurological examination did not reveal any focal deficits. SKIN: No rashes. - Labs CBC & Chem 7: 12/28/18 03:59 12/28/18 03:59 Labs: Abnormal Lab Results - Last 24 Hours (Table) 12/28/18 12/28/18 Range/Units 03:59 03:59 WBC 13.8 H (3.8-10.6) k/uL Hgb 12.1 L (13.0-17.5) gm/dL MCHC 30.5 L (31.0-37.0) g/dL Neutrophils # 12.1 H (1.3-7.7) k/uL Chloride 113 H (98-107) mmol/L Carbon Dioxide 21 L (22-30) mmol/L BUN 22 H (9-20) mg/dL Creatinine 0.63 L (0.66-1.25) mg/dL Glucose 124 H (74-99) mg/dL Magnesium 2.5 H (1.6-2.3) mg/dL Microbiology - Last 24 Hours (Table) 12/24/18 15:09 Blood Culture - Preliminary Blood No Growth after 96 hours 12/25/18 19:55 Gram Stain - Final Sputum Sputum Culture - Final 12/24/18 22:23 Blood Culture - Preliminary Blood No Growth after 72 hours 12/24/18 22:01 Blood Culture - Preliminary Blood No Growth after 72 hours Assessment and Plan Assessment: left community bronchopneumonia acute hypoxic resp faliure secondary to above . Required BiPAP therapy o/ hypertension History of bipolar disorder Plan: this is a pleasant 48 yo M who presents with left pneumonia , c/w antibiotic, send sputum culture , blood culture . iv fluids , oxygen therapy and steroids with breathing treatment and steroids Labs and medication were reviewed.. Continue same treatment. Continue with symptomatic treatment. Resume home medication. Monitor lytes and vitals. DVT and GI prophylaxis. Further recommendations of the clinical course of the patient DVT prophylaxis: Subcutaneous heparin GI Prophylaxis: Pepcid Prognosis is guarded
[2018-12-29] MEDS: methylPREDNISolone SOD SUCCI 40 MG/ML 1 ML VIAL IV SCH ×3 (00:17→21:25)
[2018-12-29] MEDS: IPRATROPIUM-ALBUTEROL 3 ML NEB INHALATION SCH ×6 (03:34→22:47)
[2018-12-29 05:18] LABS: Basophils % (A) 0 %; Eosinophils % (A) 0 %; HCT 41.6 % (39.0-53.0); HGB 12.8 gm/dL (13.0-17.5); Hypochromasia Slight; Lymphocytes # (A) 1.1 k/uL (1.0-4.8); Lymphocytes % (A) 8 %; MCH 27.8 pg (25.0-35.0); MCHC 30.8 g/dL (31.0-37.0); MCV 90.1 fL (80.0-100.0); Mean Platelet Volume 7.8; Monocytes # (A) 0.5 k/uL (0-1.0); Monocytes % (A) 4 %; Neutrophils # (A) 11.7 k/uL (1.3-7.7); Neutrophils % (A) 88 %; Platelet Count 228 k/uL (150-450); RBC 4.62 m/uL (4.30-5.90); RDW 15.2 % (11.5-15.5); WBC 13.4 k/uL (3.8-10.6)
[2018-12-29 05:20] LABS: Anion Gap 7 mmol/L; Blood Urea Nitrogen 26 mg/dL (9-20); Calcium 9.1 mg/dL (8.4-10.2); Carbon Dioxide 25 mmol/L (22-30); Chloride 108 mmol/L (98-107); Glucose 121 mg/dL (74-99); Magnesium 2.6 mg/dL (1.6-2.3); Potassium 4.6 mmol/L (3.5-5.1); Sodium 140 mmol/L (137-145)
[2018-12-29] MEDS: TRIHEXYPHENIDYL 2 MG TAB PO SCH ×2 (08:33→21:25)
[2018-12-29] MEDS: FAMOTIDINE 20 MG TAB PO SCH ×2 (08:33→21:24)
[2018-12-29] MEDS: ASPIRIN 81 MG PO SCH (08:33)
[2018-12-29] MEDS: AZITHROMYCIN 500 MG TAB PO SCH (08:33)
[2018-12-29] MEDS: ARIPiprazole 15 MG TAB PO SCH (08:33)
[2018-12-29] MEDS: LITHIUM CARBONATE 300 MG CAP PO SCH ×2 (08:34→21:25)
[2018-12-29] MEDS: METOPROLOL TARTRATE 50 MG TAB PO SCH ×2 (08:34→21:25)
[2018-12-29] MEDS: DILTIAZEM CD 120 MG CAP.ER.24H PO SCH (08:34)
[2018-12-29] MEDS: SERTRALINE 25 MG TAB PO SCH (08:34)
--- NOTE | 2018-12-29 11:41 | XR ---
EXAMINATION TYPE: XR chest 1V DATE OF EXAM: 12/29/2018 COMPARISON: 12/28/2018 INDICATION: Shortness of breath TECHNIQUE: Single frontal view of the chest is obtained. FINDINGS: The heart size is mildly prominent. The pulmonary vasculature is normal. Mild infiltrate is at the left lower lobe possibly within the lingula. Findings are stable. IMPRESSION: 1. Mild left basilar infiltrates. Correlate for atelectasis. Continued follow-up is recommended. 2. Mild cardiomegaly.
[2018-12-29] MEDS: FUROSEMIDE 10 MG/ML 4 ML VIAL IV SCH (11:47)
[2018-12-29] MEDS: MULTIVITAMINS, THERA 1 EACH TAB PO SCH (11:47)
--- NOTE | 2018-12-29 13:59 | P.PN ---
Subjective Progress Note Date: 12/29/18 Principal diagnosis: Extensive left-sided pneumonia and acute hypoxic respiratory failure this is a 48-year-old white male with history of hypertension, bipolar disorder, presented to the ER last night mostly with 1 week history of shortness of breath , cough, and not feeling well. Patient denies any fever, no chills, no hemoptysis, no chest pain. Patient is not the greatest historian. But nonetheless his chest x-ray in the ER showed extensive pneumonic process involving most of the left lung.this was confirmed by high-resolution CT of the chest, which showed significant airspace consolidation in the left lung, left upper lobe, left lower lobe, no evidence of hilar mass, no mediastinal adenopathy. Patient was noted to be quite hypoxic upon arrival to the ER, and his ABG reflected significant hypoxia with a pO2 of 40on 4 L nasal cannula, follow-up ABG on a high flow nasal cannula showed a pO2 of 53 pCO2 of 34 pH of 7.43. And this was on 80% FiO2. Patient was then switched to BiPAP, and he was kept on BiPAP overnight. In the meantime I have recommended changing the antibiotics to vancomycin and cefepime, I have also recommended Solu-Medrol 60 mg IV push every 6 hours, and recommended bronchodilators as ordered. Patient was admitted to the ICU history of going to the medical floor, and I saw him this morning. Feeling slightly better, he was still on BiPAP with IPAP of 10 and EPAP of 5, and FiO2 was 80%. I did cut down his FiO2 from 80% to 60%. Reviewed his follow-up chest x-ray which is basically about the same. Clinically however the patient is feeling better, breathing easier, and his clinical picture does not correlate with his labs and ABG.patient denies any headaches no blurred vision no dizziness. Denies any chest pain, no nausea no vomiting no abdominal pain. No melena no hematemesis no dysuria and frequency. No symptoms of osteoarthritis. He is known to have history of what seems to be bipolar disorder and he is on multiple psychiatric medications. Patient was reevaluated today on 12/26/2018, remains in the ICU, remains on high flow oxygen, actually he is on airvo at 60 L/m, and 60% FiO2. His O2 saturation is in the mid 90s, patient is feeling a lot better, denies any cough denies any wheezing, no shortness of breath. Patient was relatively asymptomatic even when he had a pO2 of 40 upon presentation to the ER. Chest x- ray was reviewed and clearly shows significant improvement in his left sided pneumonia. Patient remains on extensive course of antibiotics, I will discontinue Zithromax today, I would continue cefepime and vancomycin, and I will keep the patient in the ICU today.WBC count today is 19.3, patient is on steroids for his wheezing upon presentation. His basic metabolic profile is relatively normal.cultures so far remain negative. And that is mostly blood cultures. Influenza screen was negative on admission. On 12/29/2018 patient seen in follow-up in the intensive care unit, he is up ambulating in the room, currently down to 4 L per nasal cannula, and his pulse ox is 96%, no fever or chills, vital signs are stable, today's chest x-ray has been reviewed, and showed significant improvement in the appearance of the infiltrate at the left lung. Blood and sputum cultures were negative. No significant cough or phlegm production, patient is on a combination of Zithromax and Rocephin, clinically is improving. On nebulized bronchodilators. Patient was given a dose of IV Lasix for generalized edema yesterday, we'll give him an additional dose of IV Lasix today. So far he is in -1910 mL fluid balance. We'll continue to follow. From pulmonary perspective he is improving , could probably be considered for transfer out of the intensive care unit today , and possibly home tomorrow. Objective - Vital Signs Vital signs: Vital Signs Temp 97.2 F L 12/29/18 08:00 Pulse 76 12/29/18 12:18 Resp 20 12/29/18 08:00 BP 154/78 12/29/18 08:00 Pulse Ox 96 12/29/18 13:24 Intake & Output 12/28/18 12/29/18 12/29/18 18:59 06:59 18:59 Intake Total 480 1010 510 Output Total 3400 Balance -2920 1010 510 Intake: Intake, IV Titration 50 Amount cefTRIAXone 2 gm In 50 Sodium Chloride 0.9% 50 ml @ 100 mls/hr IVPB Q24HR [facility] Rx#:[id number] Oral 480 1010 460 Output: Urine 3400 Other: Voiding Method Urinal Urinal Urinal # Voids 1 1 1 - Exam GENERAL EXAM: Alert, active, pleasant, 48-year-old white male, currently on 4 L per nasal cannula comfortable in no apparent distress. HEAD: Normocephalic/atraumatic. EYES: Normal reaction of pupils, equal size. Conjunctiva pink, sclera white. NOSE: Clear with pink turbinates. THROAT: No erythema or exudates. NECK: No masses, no JVD, no thyroid enlargement, no adenopathy. CHEST: No chest wall deformity. Symmetrical expansion. LUNGS: Equal air entry with image breath sounds the left lower base CVS: Regular rate and rhythm, normal S1 and S2, no gallops, no murmurs, no rubs ABDOMEN: Soft, nontender. No hepatosplenomegaly, normal bowel sounds, no guarding or rigidity. EXTREMITIES: No clubbing, no edema, no cyanosis, 2+ pulses and upper and lower extremities. MUSCULOSKELETAL: Muscle strength and tone normal. SPINE: No scoliosis or deformity SKIN: No rashes CENTRAL NERVOUS SYSTEM: Alert and oriented -3. No focal deficits, tone is normal in all 4 extremities. PSYCHIATRIC: Alert and oriented -3. Appropriate affect. Intact judgment and insight. - Labs CBC & Chem 7: 12/29/18 04:29 12/29/18 04:29 Labs: Abnormal Lab Results - Last 24 Hours (Table) 12/29/18 12/29/18 Range/Units 04:29 04:29 WBC 13.4 H (3.8-10.6) k/uL Hgb 12.8 L (13.0-17.5) gm/dL MCHC 30.8 L (31.0-37.0) g/dL Neutrophils # 11.7 H (1.3-7.7) k/uL Chloride 108 H (98-107) mmol/L BUN 26 H (9-20) mg/dL Glucose 121 H (74-99) mg/dL Magnesium 2.6 H (1.6-2.3) mg/dL Microbiology - Last 24 Hours (Table) 12/24/18 22:23 Blood Culture - Preliminary Blood No Growth after 96 hours 12/24/18 22:01 Blood Culture - Preliminary Blood No Growth after 96 hours 12/24/18 15:09 Blood Culture - Preliminary Blood No Growth after 96 hours 12/25/18 19:55 Gram Stain - Final Sputum Sputum Culture - Final Assessment and Plan Plan: Assessment: #1. Acute hypoxemic respiratory failure secondary to bilateral pneumonia, left greater than the right, community-acquired #2. If bronchospasm, and bronchial inflammation, improving #3. Non-anion gap hyperchloremic metabolic acidosis, improving #4. History of bipolar disorder, schizophrenia, depression #5. History of essential hypertension #6. Obesity Plan: Patient continues to improve, no acute events overnight, no fever or chills, he is tolerating ambulation, FiO2 is down to 4 L, continue weaning FiO2, we'll give the patient additional dose of IV Lasix today. He is in negative fluid balance, chest x-ray today shows continuous improvement in the appearance of the left lung pneumonia. Continue nebulized bronchodilators, we'll decrease the IV steroids to 40 mg every 12 hours, can go out of the intensive care unit to general medical floor today, if he continues to improve patient may be discharged tomorrow. I performed a history & physical examination of the patient and discussed their management with my nurse practitioner, Tania Reno. I reviewed the nurse practitioner's note and agree with the documented findings and plan of care. Lung sounds are positive for diminished breath sounds at the left base. The findings and the impression was discussed with the patient. I attest to the documentation by the nurse practitioner. Time with Patient: Less than 30
--- NOTE | 2018-12-29 16:40 | P.CONS ---
History of Present Illness - Reason for Consult Consult date: 12/29/18 GI bleed Requesting physician: Denny E Sheet - Chief Complaint Shortness of breath - History of Present Illness 48-year-old male admitted with shortness of breath acute hypoxic respiratory failure secondary to bilateral pneumonia. History of bipolar disorder schizophrenia depression hypertension. Consult requested for GI bleed. Reported blood in stool. Denies abdominal pain. Small amounts of red-colored blood when wiping. He's has 3 colonoscopies in the past most recent about 3 years ago at [facility] to his memory unremarkable no mentioning of hemorrhoids. FOBT pending. Admission hemoglobin 14.9 presently 12.8. MCV 90. Platelet 228. INR 1.0. Iron indices low iron 14. TIBC 369. Iron saturation 3%. Ferritin 17.5. BUN 26. Creatinine 0.7. Receiving baby aspirin. IV steroids. Denies abdominal pain or weight loss. No gross hematochezia or melena. Review of Systems Constitutional: Denies fever, chills, sweats, weight gain, or loss. HEENT: Negative for migraines, blurred vision or loss, earaches, drainage, tinnitus, oral mucosal lesions, dysphagia, or odynophagia. Cardiac: Negative for chest pain, arrhythmias, or palpitation. Respiratory: Admitted with shortness of breath denies, hemoptysis, cough, or sputum production. Gastrointestinal: See HPI for pertinent findings. Genitourinary: Negative for hematuria, urgency, frequency, polyuria, dysuria, or penile discharge. Musculoskeletal: Negative for muscle aches, swelling, arthritis, and arthralgias. Neurologic: Negative for stroke or TIA. Endocrine: Negative for thyroid problems. Skin: Negative for rash or itching. Psychiatric: History of bipolar depression schizophrenia Past Medical History Past Medical History: Hypertension History of Any Multi-Drug Resistant Organisms: None Reported Past Surgical History: Orthopedic Surgery Additional Past Surgical History / Comment(s): R leg Smoking Status: Never smoker - Past Family History Father Additional Family Medical History / Comment(s): parkinsons Mother Family Medical History: AFIB, Hypertension Medications and Allergies Home Medications Medication Instructions Recorded Confirmed Type ARIPiprazole [Abilify] 30 mg PO DAILY 09/04/18 12/24/18 History Aspirin 81 mg PO DAILY 09/04/18 12/24/18 History Diltiazem HCl [Diltiazem 24Hr CD] 120 mg PO DAILY 09/04/18 12/24/18 History [place] Carbonate 300 mg PO BID 09/04/18 12/24/18 History Metoprolol Tartrate [Lopressor] 100 mg PO BID 09/04/18 12/24/18 History Multivitamin [Men's Multi-Vitamin] 1 cap PO DAILY 09/04/18 12/24/18 History QUEtiapine [SEROquel] 100 mg PO DAILY@1700 09/04/18 12/24/18 History Sertraline [Zoloft] 75 mg PO DAILY 09/04/18 12/24/18 History Temazepam [Restoril] 30 mg PO HS PRN 09/04/18 12/24/18 History Trihexyphenidyl [Artane] 2 mg PO BID 09/04/18 12/24/18 History Albuterol Inhaler [Ventolin Hfa 1 - 2 puff INHALATION RT-Q6H PRN 12/30/18 Rx Inhaler] #1 inhaler Amoxic-Pot Clav 875-125Mg 1 tab PO Q12HR #14 tablet 12/30/18 Rx [Augmentin 875-125] Famotidine [Pepcid] 20 mg PO Q12HR #60 tab 12/30/18 Rx Hydrocortisone Suppository 25 mg RECTAL HS #0 supp 12/30/18 Rx [Anusol-Hc] predniSONE 10 mg PO DIRECTED #30 tab 12/30/18 Rx Allergies Allergy/AdvReac Type Severity Reaction Status Date / Time No Known Allergies Allergy Verified 12/24/18 14:55 Physical Exam Vitals: Vital Signs Temp Pulse Pulse Pulse Pulse Resp BP 12/29/18 09:19 78 12/29/18 09:07 75 12/29/18 08:00 97.2 F L 76 20 12/29/18 03:58 79 12/29/18 03:36 79 12/29/18 00:00 97.8 F 61 16 12/28/18 23:38 83 12/28/18 23:30 83 12/28/18 21:11 77 12/28/18 20:57 77 12/28/18 20:00 97.8 F 63 18 12/28/18 15:59 76 12/28/18 15:45 76 12/28/18 15:00 97.6 F 74 20 12/28/18 14:25 12/28/18 13:13 12/28/18 12:21 64 12/28/18 12:07 65 12/28/18 11:00 70 18 135/88 BP Pulse Ox 12/29/18 09:19 12/29/18 09:07 12/29/18 08:00 154/78 97 12/29/18 03:58 12/29/18 03:36 12/29/18 00:00 152/93 12/28/18 23:38 12/28/18 23:30 12/28/18 21:11 12/28/18 20:57 97 12/28/18 20:00 152/96 95 12/28/18 15:59 12/28/18 15:45 12/28/18 15:00 146/90 96 12/28/18 14:25 96 12/28/18 13:13 96 12/28/18 12:21 12/28/18 12:07 12/28/18 11:00 96 Intake and Output 12/28/18 12/29/18 12/29/18 22:59 06:59 14:59 Intake Total 710 300 Balance 710 300 Intake: Oral 710 300 Other: Voiding Method Urinal # Voids 1 1 General appearance: The patient is alert, oriented, in no acute distress. HET: Head is normocephalic and atraumatic. Pupils are equal and reactive. Oropharynx is clear without lesions. Neck: Supple without lymphadenopathy. Trachea midline. Heart: S1 S2. Regular rate and rhythm. Lungs: No crackles or wheezes are heard. Abdomen: Soft, nontender, nondistended with bowel sounds. No peritoneal signs. No palpable organomegaly or masses. Extremities: Normal skin color and turgor. No cyanosis, rash, ulceration, clubbing, or edema. Radial and pedal pulses are 2/4 bilaterally. Neurological: No focal deficits. Strength and sensation are grossly intact. Results CBC & Chem 7: 12/29/18 04:29 12/29/18 04:29 Labs: Abnormal Lab Results - Last 24 Hours (Table) 12/29/18 12/29/18 Range/Units 04:29 04:29 WBC 13.4 H (3.8-10.6) k/uL Hgb 12.8 L (13.0-17.5) gm/dL MCHC 30.8 L (31.0-37.0) g/dL Neutrophils # 11.7 H (1.3-7.7) k/uL Chloride 108 H (98-107) mmol/L BUN 26 H (9-20) mg/dL Glucose 121 H (74-99) mg/dL Magnesium 2.6 H (1.6-2.3) mg/dL Microbiology - Last 24 Hours (Table) 12/24/18 22:23 Blood Culture - Preliminary Blood No Growth after 96 hours 12/24/18 22:01 Blood Culture - Preliminary Blood No Growth after 96 hours 12/24/18 15:09 Blood Culture - Preliminary Blood No Growth after 96 hours 12/25/18 19:55 Gram Stain - Final Sputum Sputum Culture - Final Assessment and Plan (1) Blood in stool Narrative/Plan: 48-year-old male admitted with bilateral pneumonia respiratory failure with reports of painless small amount of red blood when wiping possible perirectal in nature with multiple colonoscopies in the past last one 3 years ago to his memory was unremarkable. Hemoglobin is stable at 12.8. Status: Acute Code(s): K92.1 - MELENA SNOMED Code(s): 55141757 (2) GI bleed Status: Acute Code(s): K92.2 - GASTROINTESTINAL HEMORRHAGE, UNSPECIFIED SNOMED Code(s): 35226055 (3) Iron deficiency anemia Narrative/Plan: Mild anemia component of very mild acute blood loss. Status: Acute Code(s): D50.9 - IRON DEFICIENCY ANEMIA, UNSPECIFIED SNOMED Code(s): 52651252 (4) Bilateral pneumonia Status: Acute Code(s): J18.9 - PNEUMONIA, UNSPECIFIED ORGANISM SNOMED Code(s ): 820262739 Plan: 1. CBC monitoring. FOBT pending. Inpatient endoscopy not advise at this time. Patient was advised to follow up in the GI office after discharge for reevaluation and discussion of possible outpatient endoscopy. Inpatient endoscopy only if bleeding worsens or precipitous drop in hemoglobin however patient will require pulmonary clearance secondary to his bilateral pneumonia and admission for acute hypoxic respiratory failure. 2. Will provide Anusol suppositories daily at bedtime. Will follow closely with you. Continue with current management and supportive measures. GI prophylaxis. Thank you for this kind referral and the opportunity to participate in the care of your patient. This consultation was discussed with Dr. Riley. The impression and plan of care have been directed as dictated.
[2018-12-29] MEDS: QUEtiapine 100 MG TAB PO SCH (17:34)
--- NOTE | 2018-12-29 20:38 | P.PN ---
Subjective this is a pleasant 48 yo M with pmh of hypertension presents with dyspena of one week duration associatd with tirelness and coughing with little or no phlegms.. and no chest pain .. no sneezing or dizziness, no change in urine or bowel habits , no fever. on admission his oxygen saturation was dropping to 80s. rest ofvitals looks stable, and labs reviewed showing mild leukocytosis of 11.3K and some tachypnea where herat rate goes into twenties. PO2 in ABG drops to 40. influenza is negative and BMP is unremarkable. CXR shows left pneumonia, multifocal. CT of the thorax showing left bronchopneumonia with small bilateral pleural effusion . pt was started on ceftriaxone and zithromax, and iv fluids . oxgyen therapy is requested 12/25/2018 Patient was transferred to the ICU yesterday overnight for patient was hypoxic and there was risk been intubated. Today he was seen in the ICU patient was on BiPAP tolerating that well. He was fully awake and oriented and he is feeling the same as yesterday not in respiratory distress, no chest pain, no significant dyspnea, however he did oxygen therapy to came is saturating up. Flaps looks stable blood culture no growth, patient does not make sputum. Patient currently on cefepime and vancomycin and Zithromax. 12/26/2018 Patient remains in the ICU with improvement in his ventilation as he needed this prior to through his airvo nasal cannula. Patient remains on cefepime maintenance vancomycin, stop Zithromax. Pulmonary following the case and the recommendation to repeat chest x-ray tomorrow and is a stable he become transferred to the general medical floor. Vitals are stable. He has some leukocytosis with WBC went up to 19.3 K, mostly due to effect of steroids. BMP was unremarkable. Cultures been followed up 12/27/2018 pt remains in icu, feels the same since admission , which is no symptom . he is on airvo, pt is expected to need less FiO2, he remains hypoxic and pulmonary service are following , his medication were adjusted. will keep monitoring closely in icu currently 12/28/18 pt respiratory status keep improving, repeat CXR shows improving in the aeration of his left lung and his pneumonia, pt is expected to move of icu soon if he keep to improve. pt yesterday reported blood in stool, occult blood test was ordered but pt did not have bowel movement as he told me yet. iron studies shows iron deficincy anemia, we will consult GI team for further evaluation . Hb 12.1 12/29/2018 pt is improving significantly today as it showing in improving of his chest xray and clinically he needs only 4 L via NC, no chest pain , no dyspnea, pt was walking in the room with no difficulty , his iron profile showing KIRAN. GI evaluated pt and since his Hb and vital are stable now, inpatient endoscopy is not recommended due to his severe pulmonary infection however pt is advised to follow up with GI office as outpt Objective - Vital Signs Vital signs: Vital Signs Temp 97.3 F L 12/29/18 15:00 Pulse 72 12/29/18 20:30 Resp 22 12/29/18 15:00 BP 153/81 12/29/18 15:00 Pulse Ox 95 12/29/18 15:00 Intake & Output 12/29/18 12/29/18 12/30/18 06:59 18:59 06:59 Intake Total 1010 990 Balance 1010 990 Intake: Intake, IV Titration 50 Amount cefTRIAXone 2 gm In 50 Sodium Chloride 0.9% 50 ml @ 100 mls/hr IVPB Q24HR [facility] Rx#:[id number] Oral 1010 940 Other: Voiding Method Urinal Urinal # Voids 1 2 - Exam GENERAL: The patient is alert and oriented x3, not in any acute distress. Well developed, well nourished. HEENT: Pupils are round and equally reacting to light. EOMI. No scleral icterus. No conjunctival pallor. Normocephalic, atraumatic. No pharyngeal erythema. No thyromegaly. CARDIOVASCULAR: S1 and S2 present. No murmurs, rubs, or gallops. -PULMONARY: Chest is clear to auscultation, no wheezing or crackles. decreased breath sounds on the left lower side ABDOMEN: Soft, nontender, nondistended, normoactive bowel sounds. No palpable organomegaly. MUSCULOSKELETAL: No joint swelling or deformity. EXTREMITIES: No cyanosis, clubbing, or pedal edema. NEUROLOGICAL: Gross neurological examination did not reveal any focal deficits. SKIN: No rashes. - Labs CBC & Chem 7: 12/29/18 04:29 12/29/18 04:29 Labs: Abnormal Lab Results - Last 24 Hours (Table) 12/29/18 12/29/18 Range/Units 04:29 04:29 WBC 13.4 H (3.8-10.6) k/uL Hgb 12.8 L (13.0-17.5) gm/dL MCHC 30.8 L (31.0-37.0) g/dL Neutrophils # 11.7 H (1.3-7.7) k/uL Chloride 108 H (98-107) mmol/L BUN 26 H (9-20) mg/dL Glucose 121 H (74-99) mg/dL Magnesium 2.6 H (1.6-2.3) mg/dL Microbiology - Last 24 Hours (Table) 12/24/18 15:09 Blood Culture - Preliminary Blood No Growth after 120 hours 12/24/18 22:23 Blood Culture - Preliminary Blood No Growth after 96 hours 12/24/18 22:01 Blood Culture - Preliminary Blood No Growth after 96 hours Assessment and Plan Assessment: left community bronchopneumonia acute hypoxic resp faliure secondary to above . Required BiPAP therapy o/ hypertension History of bipolar disorder Plan: this is a pleasant 48 yo M who presents with left pneumonia , c/w antibiotic, send sputum culture , blood culture . iv fluids , oxygen therapy and steroids with breathing treatment and steroids Labs and medication were reviewed.. Continue same treatment. Continue with symptomatic treatment. Resume home medication. Monitor lytes and vitals. DVT and GI prophylaxis. Further recommendations of the clinical course of the patient DVT prophylaxis: Subcutaneous heparin GI Prophylaxis: Pepcid Prognosis is guarded
[2018-12-29] MEDS ORDERED: HYDROCORTISONE SUPPOSITORY 25 MG SUPP RECTAL SCH (21:00)
[2018-12-30] MEDS: IPRATROPIUM-ALBUTEROL 3 ML NEB INHALATION SCH ×4 (04:31→15:42)
[2018-12-30 04:35] LABS: Glucose,Whole Blood 106 mg/dL (75-99)
[2018-12-30] MEDS: METOPROLOL TARTRATE 50 MG TAB PO SCH (09:31)
[2018-12-30] MEDS: TRIHEXYPHENIDYL 2 MG TAB PO SCH (09:31)
[2018-12-30] MEDS: AZITHROMYCIN 500 MG TAB PO SCH (09:31)
[2018-12-30] MEDS: MULTIVITAMINS, THERA 1 EACH TAB PO SCH (09:31)
[2018-12-30] MEDS: FUROSEMIDE 10 MG/ML 4 ML VIAL IV SCH (09:32)
[2018-12-30] MEDS: SERTRALINE 25 MG TAB PO SCH (09:32)
[2018-12-30] MEDS: DILTIAZEM CD 120 MG CAP.ER.24H PO SCH (09:32)
[2018-12-30] MEDS: LITHIUM CARBONATE 300 MG CAP PO SCH (09:32)
[2018-12-30] MEDS: methylPREDNISolone SOD SUCCI 40 MG/ML 1 ML VIAL IV SCH (09:32)
[2018-12-30] MEDS: ARIPiprazole 15 MG TAB PO SCH (09:32)
[2018-12-30] MEDS: ASPIRIN 81 MG PO SCH (09:32)
[2018-12-30] MEDS: FAMOTIDINE 20 MG TAB PO SCH (09:32)
[2018-12-30 14:53] VITALS: BP 143/77; RESP 16; TEMP 97.9
--- NOTE | 2018-12-30 15:46 | P.PN ---
Subjective Progress Note Date: 12/30/18 Principal diagnosis: Extensive left-sided pneumonia and acute hypoxic respiratory failure this is a 48-year-old white male with history of hypertension, bipolar disorder, presented to the ER last night mostly with 1 week history of shortness of breath , cough, and not feeling well. Patient denies any fever, no chills, no hemoptysis, no chest pain. Patient is not the greatest historian. But nonetheless his chest x-ray in the ER showed extensive pneumonic process involving most of the left lung.this was confirmed by high-resolution CT of the chest, which showed significant airspace consolidation in the left lung, left upper lobe, left lower lobe, no evidence of hilar mass, no mediastinal adenopathy. Patient was noted to be quite hypoxic upon arrival to the ER, and his ABG reflected significant hypoxia with a pO2 of 40on 4 L nasal cannula, follow-up ABG on a high flow nasal cannula showed a pO2 of 53 pCO2 of 34 pH of 7.43. And this was on 80% FiO2. Patient was then switched to BiPAP, and he was kept on BiPAP overnight. In the meantime I have recommended changing the antibiotics to vancomycin and cefepime, I have also recommended Solu-Medrol 60 mg IV push every 6 hours, and recommended bronchodilators as ordered. Patient was admitted to the ICU history of going to the medical floor, and I saw him this morning. Feeling slightly better, he was still on BiPAP with IPAP of 10 and EPAP of 5, and FiO2 was 80%. I did cut down his FiO2 from 80% to 60%. Reviewed his follow-up chest x-ray which is basically about the same. Clinically however the patient is feeling better, breathing easier, and his clinical picture does not correlate with his labs and ABG.patient denies any headaches no blurred vision no dizziness. Denies any chest pain, no nausea no vomiting no abdominal pain. No melena no hematemesis no dysuria and frequency. No symptoms of osteoarthritis. He is known to have history of what seems to be bipolar disorder and he is on multiple psychiatric medications. Patient was reevaluated today on 12/26/2018, remains in the ICU, remains on high flow oxygen, actually he is on airvo at 60 L/m, and 60% FiO2. His O2 saturation is in the mid 90s, patient is feeling a lot better, denies any cough denies any wheezing, no shortness of breath. Patient was relatively asymptomatic even when he had a pO2 of 40 upon presentation to the ER. Chest x- ray was reviewed and clearly shows significant improvement in his left sided pneumonia. Patient remains on extensive course of antibiotics, I will discontinue Zithromax today, I would continue cefepime and vancomycin, and I will keep the patient in the ICU today.WBC count today is 19.3, patient is on steroids for his wheezing upon presentation. His basic metabolic profile is relatively normal.cultures so far remain negative. And that is mostly blood cultures. Influenza screen was negative on admission. On 12/29/2018 patient seen in follow-up in the intensive care unit, he is up ambulating in the room, currently down to 4 L per nasal cannula, and his pulse ox is 96%, no fever or chills, vital signs are stable, today's chest x-ray has been reviewed, and showed significant improvement in the appearance of the infiltrate at the left lung. Blood and sputum cultures were negative. No significant cough or phlegm production, patient is on a combination of Zithromax and Rocephin, clinically is improving. On nebulized bronchodilators. Patient was given a dose of IV Lasix for generalized edema yesterday, we'll give him an additional dose of IV Lasix today. So far he is in -1910 mL fluid balance. We'll continue to follow. From pulmonary perspective he is improving , could probably be considered for transfer out of the intensive care unit today , and possibly home tomorrow. The patient is seen today 12/30/2017 in follow-up on the regular medical floor. He is awake and alert in no acute distress. Currently sitting up in a chair at the bedside. He denies any worsening shortness of breath, cough or congestion. No fever, chills or night sweats. He is maintaining O2 saturations in the mid 90s on room air. He's been afebrile. Hemodynamically stable. Blood cultures reveal no growth. Sputum culture reveals no growth. He is currently on bronchodilators, IV Solu-Medrol, antibiotics in the form of ceftriaxone and azithromycin. Still receiving Lasix 40 mg IV push daily. Objective - Vital Signs Vital signs: Vital Signs Temp 97.9 F 12/30/18 14:53 Pulse 70 12/30/18 14:53 Resp 16 12/30/18 14:53 BP 143/77 12/30/18 14:53 Pulse Ox 95 12/30/18 14:53 Intake & Output 12/29/18 12/30/18 12/30/18 18:59 06:59 18:59 Intake Total 990 50 Balance 990 50 Intake: IV 50 cefTRIAXone 2 gm In 50 Sodium Chloride 0.9% 50 ml @ 100 mls/hr IVPB Q24HR [facility] Rx#:[id number] Intake, IV Titration 50 Amount cefTRIAXone 2 gm In 50 Sodium Chloride 0.9% 50 ml @ 100 mls/hr IVPB Q24HR [facility] Rx#:[id number] Oral 940 Other: Voiding Method Urinal # Voids 2 3 - Exam GENERAL EXAM: Alert, active, comfortable in no apparent distress. On room air. HEAD: Normocephalic. EYES: Normal reaction of pupils, equal size. NOSE: Clear with pink turbinates. THROAT: No erythema or exudates. NECK: No masses, no JVD. CHEST: No chest wall deformity. LUNGS: Equal air entry with faint crackles in the left posterior base. CVS: S1 and S2 normal with no audible murmur, regular rhythm. ABDOMEN: No hepatosplenomegaly, normal bowel sounds, no guarding or rigidity. SPINE: No scoliosis or deformity SKIN: No rashes CENTRAL NERVOUS SYSTEM: No focal deficits, tone is normal in all 4 extremities. EXTREMITIES: There is no peripheral edema. No clubbing, no cyanosis. Peripheral pulses are intact. - Labs CBC & Chem 7: 12/29/18 04:29 12/29/18 04:29 Labs: Abnormal Lab Results - Last 24 Hours (Table) 12/30/18 Range/Units 04:24 POC Glucose (mg/dL) 106 H (75-99) mg/dL Microbiology - Last 24 Hours (Table) 12/24/18 22:23 Blood Culture - Preliminary Blood No Growth after 120 hours 12/24/18 22:01 Blood Culture - Preliminary Blood No Growth after 120 hours 12/24/18 15:09 Blood Culture - Preliminary Blood No Growth after 120 hours Assessment and Plan Assessment: Assessment: #1. Acute hypoxemic respiratory failure secondary to bilateral pneumonia, left greater than the right, community-acquired #2. If bronchospasm, and bronchial inflammation, improving #3. Non-anion gap hyperchloremic metabolic acidosis, improving #4. History of bipolar disorder, schizophrenia, depression #5. History of essential hypertension #6. Obesity Plan: The patient was seen and evaluated by Dr. De Santiago. He is cleared for discharge from the pulmonary standpoint. Complete course of antibiotics. Complete a course of prednisone burst and taper. He should follow-up in our office in the outpatient setting we'll repeat a chest x-ray then. He is encouraged to call sooner with any recurrence of symptoms or other questions or concerns. I, the cosigning physician, performed a history & physical examination of the patient. Lungs sounds with faint crackles in left posterior base. Maintaining good O2 saturations in the 90s on room air. I discussed the assessment and plan of care with my nurse practitioner, Deja Denton. I attest to the above note as dictated by her.
[2018-12-30 15:52] VITALS: PULSE 80
[2018-12-30] MEDS: QUEtiapine 100 MG TAB PO SCH (16:30)
--- NOTE | 2018-12-30 20:14 | P.DS ---
Providers Date of admission: 12/24/18 16:26 Attending physician: Denny Trejo MD Consults: 12/24/18 16:28 Consult Physician Routine Consulting Provider: Kev Mackay Consult Reason/Comments: Pneumonia, bronchospasm Do you want consulting provider notified?: Yes 12/28/18 22:53 Consult Physician Routine Consulting Provider: Alessandro Riley Consult Reason/Comments: gi bleed Do you want consulting provider notified?: Yes Primary care physician: Tonsil Hospital Course: this is a pleasant 48 yo M with pmh of hypertension presents with dyspena of one week duration associated with tiredness and coughing with little or no phlegms. and no chest pain.. on admission his oxygen saturation was dropping to 80s. rest of vitals looks stable, and labs reviewed showing mild leukocytosis of 11.3K CXR shows left pneumonia, multifocal. CT of the thorax showing left bronchopneumonia with small bilateral pleural effusion . pt was started on ceftriaxone and zithromax, and iv fluids . oxgyen therapy is requested patient was admitted to the intensive care unit due to his hypoxia and he was treated with airvo nasal cannula, patient showed interval improvement gradually and trapezius chest x-ray today shows improvement in his pneumonia. Patient was eventually transferred to the general medical floor. He did not need anymore oxygen therapy and he was saturating 98% on room air. Patient was been evaluated and cleared by pulmonary team for discharge on short course of antibiotic which was provided for the patient. Patient course: Located by blood in the stool. Anemia workup showed iron deficiency anemia. Patient has been evaluated by GI team and recommended GI workup as an outpatient. Appointment was made for the patient and he agrees with that appointment and he said he will follow-up. Patient was cleared by both GI and pulmonary team as stated above Problem list and management plan was discussed with patient in details and he verbalized understanding and acceptance Patient was found stable and can be discharged home however he needs follow-up as an outpatient. Patient agrees with the appointments made for him for his Doctors as instructed, please refer to the discharge instructions Gen: patient is a AAOx3, no distress CVS: S1-S2, RRR, no murmur Lungs: B/L CTA, no wheezing Abdomen: soft, no distention, no tenderness, positive bowel sounds Extremity: no leg edema or induration Time spent more than 35 minutes Patient Condition at Discharge: Serious Plan - Discharge Summary Discharge Rx Participant: Yes New Discharge Prescriptions: New Albuterol Inhaler [Ventolin Hfa Inhaler] 1 - 2 puff INHALATION RT-Q6H PRN #1 inhaler PRN Reason: Shortness Of Breath Or Wheezing Amoxic-Pot Clav 875-125Mg [Augmentin 875-125] 1 tab PO Q12HR #14 tablet Famotidine [Pepcid] 20 mg PO Q12HR #60 tab Hydrocortisone Suppository [Anusol-Hc] 25 mg RECTAL HS #0 supp predniSONE 10 mg PO DIRECTED #30 tab Continue Sertraline [Zoloft] 75 mg PO DAILY Aspirin 81 mg PO DAILY Temazepam [Restoril] 30 mg PO HS PRN PRN Reason: Insomnia QUEtiapine [SEROquel] 100 mg PO DAILY@1700 ARIPiprazole [Abilify] 30 mg PO DAILY Metoprolol Tartrate [Lopressor] 100 mg PO BID Trihexyphenidyl [Artane] 2 mg PO BID Multivitamin [Men's Multi-Vitamin] 1 cap PO DAILY [place] Carbonate 300 mg PO BID Diltiazem HCl [Diltiazem 24Hr CD] 120 mg PO DAILY Discharge Medication List ARIPiprazole [Abilify] 30 mg PO DAILY 09/04/18 [History] Aspirin 81 mg PO DAILY 09/04/18 [History] Diltiazem HCl [Diltiazem 24Hr CD] 120 mg PO DAILY 09/04/18 [History] [place] Carbonate 300 mg PO BID 09/04/18 [History] Metoprolol Tartrate [Lopressor] 100 mg PO BID 09/04/18 [History] Multivitamin [Men's Multi-Vitamin] 1 cap PO DAILY 09/04/18 [History] QUEtiapine [SEROquel] 100 mg PO DAILY@1700 09/04/18 [History] Sertraline [Zoloft] 75 mg PO DAILY 09/04/18 [History] Temazepam [Restoril] 30 mg PO HS PRN 09/04/18 [History] Trihexyphenidyl [Artane] 2 mg PO BID 09/04/18 [History] Albuterol Inhaler [Ventolin Hfa Inhaler] 1 - 2 puff INHALATION RT-Q6H PRN #1 inhaler 12/30/18 [Rx] Amoxic-Pot Clav 875-125Mg [Augmentin 875-125] 1 tab PO Q12HR #14 tablet [Rx] Famotidine [Pepcid] 20 mg PO Q12HR #60 tab 12/30/18 [Rx] Hydrocortisone Suppository [Anusol-Hc] 25 mg RECTAL HS #0 supp 12/30/18 [Rx] predniSONE 10 mg PO DIRECTED #30 tab 12/30/18 [Rx] Follow up Appointment(s)/Referral(s): Kev Mackay MD [STAFF PHYSICIAN] - 01/21/19 9:30 am Yadira Cool MD [STAFF PHYSICIAN] - 01/18/19 3:15 pm (policy analyst for your anemia and possible blood in stool. appt will be with Dr. Patel) [facility], [NON-STAFF] - 1-2 Days Omer Remy MD [Primary Care Provider] - 01/04/19 2:15 pm Patient Instructions/Handouts: Community Acquired Pneumonia (DC) Activity/Diet/Wound Care/Special Instructions: No carbohydrate regular diet Activity as tolerated Discharge Disposition: HOME SELF-CARE
== END 2018-12-30 18:28 | disposition home or self-care (01) | DRG 189 ==
LOC: EC 14:32 → 3NMEDONC 16:26 → 2SICU 20:02 → 4MS4W 12-29 17:54
PROVIDERS: ADMIT Internal Medicine; ATTEND Internal Medicine
PROC: 5A09357 Assistance with Respiratory Ventilation, Less than 24 Consecutive Hours, Continuous Positive Airway Pressure (ICD-10-PCS; principal; 2018-12-25)
DX: J96.01 Acute respiratory failure with hypoxia (principal); J18.0 Bronchopneumonia, unspecified organism; E87.2 Acidosis; K92.2 Gastrointestinal hemorrhage, unspecified; J90 Pleural effusion, not elsewhere classified; E87.8 Other disorders of electrolyte and fluid balance, not elsewhere classified; J98.01 Acute bronchospasm; E66.9 Obesity, unspecified; F20.9 Schizophrenia, unspecified; F31.9 Bipolar disorder, unspecified; I10 Essential (primary) hypertension; D50.9 Iron deficiency anemia, unspecified; Z79.82 Long term (current) use of aspirin; Z79.899 Other long term (current) drug therapy; Z68.39 Body mass index [BMI] 39.0-39.9, adult; Z82.0 Family history of epilepsy and other diseases of the nervous system; Z82.49 Family history of ischemic heart disease and other diseases of the circulatory system
CPT/HCPCS: 36415; 36600; 71045; 71046; 71250; 80048; 80053; 80202; 82550; 82553; 82728; 82805; 83540; 83550; 83735; 83880; 84100; 84484; 85025; 85610; 85730; 87040; 87070; 87205; 87449; 87502; 93005; 94640; 94660; 94664; 94760; 96361; 96365; 96367; 96375; 99291

== ENCOUNTER 2019-08-26 20:40 | Emergency (ER) | payer BC, MEDICARE ==
[2019-08-26 20:55] VITALS: TEMP 97.8
--- NOTE | 2019-08-26 21:41 | ED ---
Recheck HPI - General Chief Complaint: Recheck/Abnormal Lab/Rx Stated Complaint: oxygen is at 80% Time Seen by Provider: 08/26/19 21:22 Source: patient Mode of arrival: ambulatory Limitations: no limitations - History of Present Illness Initial Comments: 49-year-old male presents for shortness of breath and hypoxia. Patient states that he felt slightly short of breath today and has had occasional lasting for less than one second sharp left-sided chest pain. Patient states he does have any current chest pain. Patient denies any specific pain with deep inspiration. Patient denies any ripping tearing back pain. Patient denies nausea chest pressure or vomiting or indigestion. Patient states that he was hypoxic in November when he had pneumonia. Patient denies history of DVT or pulmonary embolism denies any recent surgeries recent travel he denies any history of cancer. Patient states she has had swelling of the legs for quite some time now he states he has no known history of heart failure. Patient denies any increased shortness of breath with lying flat. Patient states that when he saw that his oxygen levels were less than 88% he felt is appropriate to come to emergency department for evaluation. Patient denies cough, fevers or upper respiratory symptoms. Denies hemoptysis. Upon arrival patient was found be hypoxic. Heart rate within normal limits. Remaining review of systems negative. - Related Data Home Medications Medication Instructions Recorded Confirmed ARIPiprazole [Abilify] 30 mg PO DAILY 09/04/18 08/26/19 Aspirin 81 mg PO DAILY 09/04/18 08/26/19 Diltiazem HCl [Diltiazem 24Hr CD] 120 mg PO DAILY 09/04/18 08/26/19 [place] Carbonate 300 mg PO BID 09/04/18 08/26/19 Metoprolol Tartrate [Lopressor] 100 mg PO BID 09/04/18 08/26/19 Multivitamin [Men's Multi-Vitamin] 1 cap PO DAILY 09/04/18 08/26/19 QUEtiapine [SEROquel] 100 mg PO DAILY@1700 09/04/18 08/26/19 Sertraline [Zoloft] 75 mg PO DAILY 09/04/18 08/26/19 Temazepam [Restoril] 30 mg PO HS PRN 09/04/18 08/26/19 Trihexyphenidyl [Artane] 2 mg PO BID 09/04/18 08/26/19 Allergies Allergy/AdvReac Type Severity Reaction Status Date / Time No Known Allergies Allergy Verified 12/24/18 14:55 Review of Systems ROS Statement: Those systems with pertinent positive or pertinent negative responses have been documented in the HPI. ROS Other: All systems not noted in ROS Statement are negative. Past Medical History Past Medical History: Hypertension, Pneumonia History of Any Multi-Drug Resistant Organisms: None Reported Past Surgical History: Orthopedic Surgery Additional Past Surgical History / Comment(s): R leg Past Psychological History: Depression, Schizophrenia Smoking Status: Never smoker Past Alcohol Use History: None Reported Past Drug Use History: None Reported - Past Family History Father Additional Family Medical History / Comment(s): parkinsons Mother Family Medical History: AFIB, Hypertension General Exam - General Exam Comments Initial Comments: General: The patient is awake and alert, in no distress Eye: +3mm pupils are equal, round and reactive to light, extra-ocular movements are intact. No nystagmus. There is normal conjunctiva bilaterally. No signs of icterus. Ears, nose, mouth and throat: There are moist mucous membranes and no oral lesions. Neck: The neck is supple, there is no tenderness or JVD. Cardiovascular: There is a increased rate and regular rhythm. No murmur, rub or gallop is appreciated. Respiratory: Lungs are clear to auscultation, respirations are non-labored, breath sounds are equal. No wheezes, stridor, rales, or rhonchi. No retractions or abdominal breathing Gastrointestinal: Soft, non-distended, non-tender abdomen without masses or organomegaly noted. There is no rebound or guarding present. No pulsatile ma sses. Musculoskeletal: Normal ROM, no tenderness. Strength 5/5. Sensation intact. Radial pulses equal bilaterally 2+. Neurological: A&O x 3. CN II-XII intact grossly, There are no obvious motor or sensory deficits. Coordination appears grossly intact. Speech is normal. Skin: Skin is warm and dry and no rashes or lesions are noted. B/l LE edema, pitting. Psychiatric: Cooperative, appropriate mood & affect, normal judgment. Limitations: no limitations Course Vital Signs 08/26/19 08/26/19 08/26/19 20:50 21:40 23:12 Temperature 97.8 F Pulse Rate 100 91 Respiratory 20 18 Rate Blood Pressure 163/94 173/107 O2 Sat by Pulse 88 L 92 L 92 L Oximetry 08/26/19 23:58 Temperature Pulse Rate 84 Respiratory 20 Rate Blood Pressure 180/114 O2 Sat by Pulse 91 L Oximetry Medical Decision Making - Medical Decision Making 49yo male presenting for hypoxia and SOB. Persistent hypoxia on 6L of oxygen. Dimer elevated. No current CP. EKG no findings of ischemia. CXR suspicious RLL PNA. CT revealed multiple b/l PE. No right heart strain. Mild elevation of troponin. Patient started on high intensity heparin. Discussed findings with attending and patient reviewing imaging studies personally with attending. He spoke with Dr. De Santiago- who recommended transfer if questionable heart strain. At this time we do concerned that there is possible mild right heart strain and will transfer patient to the nearest facility with capability of localized thrombolytic therapy. I spoke with the accepting transferring physician Dr. Nir fernando who is agreeable with transfer. Pt hypertensive, stable for transfer. Agreeable to transfer. Patient evaluated in person by my attending Dr. Finley. Agreeable with transfer and care of patient. High intensity heparin was initiated. - Lab Data Result diagrams: 08/26/19 22:21 08/26/19 22:21 Lab Results 08/26/19 08/26/19 08/26/19 Range/Units 22:21 22:21 22:21 WBC 9.2 (3.8-10.6) k/uL RBC 5.04 (4.30-5.90) m/uL Hgb 15.5 (13.0-17.5) gm/dL Hct 46.3 (39.0-53.0) % MCV 91.9 (80.0-100.0) fL MCH 30.7 (25.0-35.0) pg MCHC 33.4 (31.0-37.0) g/dL RDW 14.7 (11.5-15.5) % Plt Count 209 (150-450) k/uL Neutrophils % 67 % Lymphocytes % 20 % Monocytes % 7 % Eosinophils % 2 % Basophils % 2 % Neutrophils # 6.2 (1.3-7.7) k/uL Lymphocytes # 1.8 (1.0-4.8) k/uL Monocytes # 0.7 (0-1.0) k/uL Eosinophils # 0.2 (0-0.7) k/uL Basophils # 0.1 (0-0.2) k/uL PT 10.9 (9.0-12.0) sec INR 1.0 (<1.2) APTT 25.0 (22.0-30.0) sec D-Dimer 3.82 H (<0.60) mg/L FEU Sodium 143 (137-145) mmol/L Potassium 4.5 (3.5-5.1) mmol/L Chloride 108 H (98-107) mmol/L Carbon Dioxide 25 (22-30) mmol/L Anion Gap 10 mmol/L BUN 13 (9-20) mg/dL Creatinine 0.75 (0.66-1.25) mg/dL Est GFR (CKD-EPI)AfAm >90 (>60 ml/min/1.73 sqM) Est GFR (CKD-EPI)NonAf >90 (>60 ml/min/1.73 sqM) Glucose 97 (74-99) mg/dL Plasma Lactic Acid Bryon (0.7-2.0) mmol/L Calcium 9.6 (8.4-10.2) mg/dL Total Bilirubin 0.7 (0.2-1.3) mg/dL AST 42 (17-59) U/L ALT 29 (21-72) U/L Alkaline Phosphatase 102 (38-126) U/L Troponin I (0.000-0.034) ng/mL NT-Pro-B Natriuret Pep pg/mL Total Protein 8.1 (6.3-8.2) g/dL Albumin 4.8 (3.5-5.0) g/dL 08/26/19 08/26/19 08/26/19 Range/Units 22:21 22:21 22:21 WBC (3.8-10.6) k/uL RBC (4.30-5.90) m/uL Hgb (13.0-17.5) gm/dL Hct (39.0-53.0) % MCV (80.0-100.0) fL MCH (25.0-35.0) pg MCHC (31.0-37.0) g/dL RDW (11.5-15.5) % Plt Count (150-450) k/uL Neutrophils % % Lymphocytes % % Monocytes % % Eosinophils % % Basophils % % Neutrophils # (1.3-7.7) k/uL Lymphocytes # (1.0-4.8) k/uL Monocytes # (0-1.0) k/uL Eosinophils # (0-0.7) k/uL Basophils # (0-0.2) k/uL PT (9.0-12.0) sec INR (<1.2) APTT (22.0-30.0) sec D-Dimer (<0.60) mg/L FEU Sodium (137-145) mmol/L Potassium (3.5-5.1) mmol/L Chloride (98-107) mmol/L Carbon Dioxide (22-30) mmol/L Anion Gap mmol/L BUN (9-20) mg/dL Creatinine (0.66-1.25) mg/dL Est GFR (CKD-EPI)AfAm (>60 ml/min/1.73 sqM) Est GFR (CKD-EPI)NonAf (>60 ml/min/1.73 sqM) Glucose (74-99) mg/dL Plasma Lactic Acid Bryon 1.1 (0.7-2.0) mmol/L Calcium (8.4-10.2) mg/dL Total Bilirubin (0.2-1.3) mg/dL AST (17-59) U/L ALT (21-72) U/L Alkaline Phosphatase (38-126) U/L Troponin I 0.042 H* (0.000-0.034) ng/mL NT-Pro-B Natriuret Pep 515 pg/mL Total Protein (6.3-8.2) g/dL Albumin (3.5-5.0) g/dL - EKG Data EKG Comments: Ventricular rate 86 bpm, [place] interval 180 ms, QRS ration 90 ms, QT/QTC 384/459 ms. This is her most sinus. Findings consistent with slight left atrial enlargement. There is no ST elevation or depression. EKG reviewed by attending Dr. Finley. Disposition Clinical Impression: Hypoxia, Bilateral pulmonary embolism, Elevated troponin, Elevated blood pres sure reading Disposition: OTHER INSTITUTION NOT DEFINED Condition: Stable Is patient prescribed a controlled substance at d/c from ED?: No Referrals: Omer Remy MD [Primary Care Provider] - 1-2 days Time of Disposition: 00:32 - Out of Hospital Transfer - Req. Specs Out of Hospital Transfer - Requested Specifics: Other Emergency Center (Dr. Christen Mckeon)
[2019-08-26 22:30] LABS: Basophils # (A) 0.1 k/uL (0-0.2); Basophils % (A) 2 %; Eosinophils # (A) 0.2 k/uL (0-0.7); Eosinophils % (A) 2 %; HCT 46.3 % (39.0-53.0); HGB 15.5 gm/dL (13.0-17.5); Lymphocytes # (A) 1.8 k/uL (1.0-4.8); Lymphocytes % (A) 20 %; MCH 30.7 pg (25.0-35.0); MCHC 33.4 g/dL (31.0-37.0); MCV 91.9 fL (80.0-100.0); Mean Platelet Volume 6.9; Monocytes # (A) 0.7 k/uL (0-1.0); Monocytes % (A) 7 %; Neutrophils # (A) 6.2 k/uL (1.3-7.7); Neutrophils % (A) 67 %; Platelet Count 209 k/uL (150-450); RBC 5.04 m/uL (4.30-5.90); RDW 14.7 % (11.5-15.5); WBC 9.2 k/uL (3.8-10.6)
--- NOTE | 2019-08-26 22:30 | XR ---
EXAMINATION TYPE: XR chest 2V DATE OF EXAM: 08/26/2019 COMPARISON: 01/21/2019 HISTORY: Difficulty breathing TECHNIQUE: Frontal and lateral views of the chest are obtained. FINDINGS: There is some blunting left costophrenic angle. There is no heart failure. Heart is border line enlarged. Bony thorax appears intact. There is evidence for airspace infiltrate in the anterior segment of the right lower lobe adjacent to the heart. IMPRESSION: There is small pleural effusion or pleural reaction unchanged compared to last exam. No heart failure. There is some right lower lobe pneumonia that is new compared to old exam.
[2019-08-26 22:36] LABS: African American GFR (CKD) >90 (>60 ml/min/1.73 sqM); Anion Gap 10 mmol/L; Blood Urea Nitrogen 13 mg/dL (9-20); Calcium 9.6 mg/dL (8.4-10.2); Carbon Dioxide 25 mmol/L (22-30); Chloride 108 mmol/L (98-107); Glucose 97 mg/dL (74-99); Sodium 143 mmol/L (137-145); Total Bilirubin 0.7 mg/dL (0.2-1.3)
[2019-08-26 22:38] LABS: ALT 29 U/L (21-72); AST 42 U/L (17-59); Albumin 4.8 g/dL (3.5-5.0); Alkaline Phosphatase 102 U/L (38-126); Potassium 4.5 mmol/L (3.5-5.1); Total Protein 8.1 g/dL (6.3-8.2)
[2019-08-26 22:40] LABS: Prothrombin Time 10.9 sec (9.0-12.0)
[2019-08-26 22:43] LABS: D-Dimer 3.82 mg/L FEU (<0.60)
[2019-08-26] MEDS ORDERED: HEPARIN SODIUM,PORCINE 5,000 UNIT/ML 1 ML VIAL IV PRN (23:23)
[2019-08-26] MEDS ORDERED: HEPARIN SODIUM,PORCINE 10,000 UNIT/ML 1 ML VIAL IV ONE (23:23)
--- NOTE | 2019-08-26 23:28 | CT ---
EXAMINATION TYPE: CT chest angio for PE DATE OF EXAM: 08/26/2019 COMPARISON: None HISTORY: R/O PE CT DLP: 1079.30 mGycm Automated exposure control for dose reduction was used. CONTRAST: CT Chest for pulmonary embolism performed with with IV Contrast, patient injected with 70 mL of Isovu e 370. FINDINGS: There are 3-D post processed images. There is no mediastinal adenopathy. There is some small bilateral pleural effusion. Heart is borderline enlarged. There is small pericard ial effusion. There is some mild airspace infiltrate and atelectasis at the lung bases. There are mul tiple bilateral bronchial lymph nodes up to 1 cm. Thoracic aorta is intact without evidence of aneury sm or dissection. There are multiple filling defects within the lower lobe pulmonary arteries bilaterally. There is als o bilateral upper lobe multiple pulmonary emboli. Right ventricle is not enlarged. There is minor spu rring in the thoracic spine. I see no bony destructive process. IMPRESSION: Bilateral pleural effusions. Bilateral lower lobe mild pulmonary infiltrates and atelectasis. Extensive bilateral upper and lower lobe pulmonary emboli. Mild bilateral bronchial adenopathy consis tent with inflammatory disease. Small pericardial effusion. No evidence of right heart strain. Right ventricle has normal size. Exam was discussed with ER physician at 11:30 PM.
[2019-08-26] MEDS ORDERED: HEPARIN SOD,PORK IN 0.45% NACL 25,000 UNIT in 0.45% NACL 1 250ML.BAG IV SCH (23:30)
[2019-08-26 23:58] VITALS: BP 180/114; PULSE 84; RESP 20
[2019-08-27] MEDS ORDERED: hydrALAZINE HCL 20 MG/ML 1 ML VIAL IVP STA (00:30)
[2019-08-27 00:49] LABS: Basophils # (A) 0.1 k/uL (0-0.2); Basophils % (A) 1 %; Eosinophils # (A) 0.2 k/uL (0-0.7); Eosinophils % (A) 2 %; HCT 46.3 % (39.0-53.0); HGB 14.6 gm/dL (13.0-17.5); Lymphocytes % (A) 23 %; MCH 29.8 pg (25.0-35.0); MCHC 31.4 g/dL (31.0-37.0); MCV 94.7 fL (80.0-100.0); Mean Platelet Volume 7.6; Monocytes # (A) 0.6 k/uL (0-1.0); Monocytes % (A) 7 %; Neutrophils # (A) 5.9 k/uL (1.3-7.7); Neutrophils % (A) 65 %; Platelet Count 213 k/uL (150-450); RBC 4.89 m/uL (4.30-5.90); RDW 15.1 % (11.5-15.5); WBC 9.1 k/uL (3.8-10.6)
[2019-08-27 01:08] LABS: INR 1.2 (<1.2); Prothrombin Time 12.1 sec (9.0-12.0)
[2019-08-27 01:10] LABS: Partial Thromboplastin Time >200.0 sec (22.0-30.0)
== END 2019-08-27 01:20 | disposition short-term general hospital (02) ==
LOC: EC 20:40
DX: I26.99 Other pulmonary embolism without acute cor pulmonale (principal); I10 Essential (primary) hypertension; R09.02 Hypoxemia; R79.89 Other specified abnormal findings of blood chemistry; R79.1 Abnormal coagulation profile; F32.9 Major depressive disorder, single episode, unspecified; F20.9 Schizophrenia, unspecified; Z79.82 Long term (current) use of aspirin; Z79.899 Other long term (current) drug therapy; Z99.81 Dependence on supplemental oxygen; Z87.01 Personal history of pneumonia (recurrent); Z82.49 Family history of ischemic heart disease and other diseases of the circulatory system
CPT/HCPCS: 99285; 96365; 96367; 96366; 96376; 36415; 93005; 85379; 83880; 80053; 83605; 84484; 85025; 85610; 85730; 87040; 71046; 71275; J1644 ×2; J0696; Q9967

== ENCOUNTER → 2020-01-02 | Outpatient (CLI) | payer BC ==
--- NOTE | 2020-01-03 07:27 | CT ---
EXAMINATION TYPE: CT abdomen pelvis w con DATE OF EXAM: 01/02/2020 COMPARISON: None HISTORY: 49-year-old male Weight gain and rectal bleeding. TECHNIQUE: Contiguous axial scanning of the abdomen and pelvis following administration of 100 ml Iso margarito 300 IV contrast. Delayed images through the kidneys and coronal/sagittal reconstructions perform ed. CT DLP: 2452.9 mGycm Automated exposure control for dose reduction was used. FINDINGS: LUNG BASES: Small pericardial effusion measuring 1.2 cm thick. Trace to small effusions are also pres ent. LIVER/GB: Borderline in size at 17.1 cm there are no focal lesion seen. Portal venous system is paten t. No biliary ductal dilatation. Gallbladder within normal limits. PANCREAS: No significant abnormality is seen. SPLEEN: Normal size. Anterior splenule. ADRENALS: No significant abnormality is seen. KIDNEYS: 1.2 cm cortical cyst anterior upper pole left kidney was present previously. Otherwise, no a bnormality seen. LYMPH NODES: No mesenteric or retroperitoneal lymphadenopathy. There is an elongated nodular area of 2.4 x 1.3 cm density in the umbilical region extending into the intra-abdominal fat. REPRODUCTIVE ORGANS: Prostate gland mildly prominent at 4.4 cm wide with central calcification. Pelvi c phleboliths. Bladder urine distended. No abnormal fluid collection in the pelvis. Some prominent bu t nonenlarged external iliac chain lymph nodes measuring up to 7 mm on either side. BOWEL: No dilated small bowel, free fluid, or free air. No significant stool burden. No pericolonic inflammatory change. Redundant sigmoid colon. BONES: Mild degenerative change at the hips. 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 Facet arthropathy mid to lower lumbar spine with multilevel degenerative disc disease. IMPRESSION: 1. SMALL PERICARDIAL EFFUSION MEASURING 1.2 CM THICK. ADDITIONAL TRACE TO SMALL BILATERAL PLEURAL EFF USIONS. QUERY FLUID OVERLOAD STATE OR OTHER ETIOLOGY. CLINICALLY CORRELATE. 2. ELONGATED, NODULAR 2.4 X 1.3 CM DENSITY AT AND BEHIND THE UMBILICUS. EXACT ETIOLOGY IS UNCLEAR. A SMALL UMBILICAL-URACHAL SINUS AND A TINY SMALL BOWEL CONTAINING UMBILICAL HERNIA ARE CONSIDERATIONS.
== END | disposition home or self-care (01) ==
LOC: RADCTMAIN 14:41
PROVIDERS: ATTEND Internal Medicine Hematology & Oncology
DX: K31.89 Other diseases of stomach and duodenum (principal)
CPT/HCPCS: 74177; Q9967

== ENCOUNTER 2021-06-11 08:27 | Day surgery (SDC) | payer BC ==
[2021-06-07 09:11] VITALS: BMI 40.6
[~2021-06-11 08:27] MED LIST: LACTATED RINGERS 1,000 ML IV SCH; LIDOCAINE 1% (10MG/ML) FOR IV START INTRADERMA PRN
[2021-06-11 08:53] VITALS: RESP 17; TEMP 97.9
[2021-06-11 08:55] LABS: Glucose,Whole Blood 103 mg/dL (75-99)
[2021-06-11] MEDS ORDERED: PROPOFOL 10 MG/ML 20 ML VIAL IV ONE (09:33)
[2021-06-11 10:05] LABS: Glucose,Whole Blood 99 mg/dL (75-99)
--- NOTE | 2021-06-11 10:11 | P.PCN ---
Date of Procedure: 06/11/21 Description of Procedure: BRIEF HISTORY: Patient is a 50-year-old male presenting for outpatient colonoscopy for screening for blood in neoplasm the colon. Patient reports prior colonoscopy with diagnosis of hemorrhoids. No change in bowel habits. Patient does report frequent blood per rectum with bowel movements. He denies any family history of colon cancer. PROCEDURE PERFORMED: Colonoscopy with polypectomy. PREOPERATIVE DIAGNOSIS: Screening for malignant neoplasm of the colon, patient does report prior colonoscopy unsure of the date. ESTIMATED BLOOD LOSS: Minimal. IV sedation per Anesthesia. PROCEDURE: After informed consent was obtained, the patient, was brought into the endoscopy unit. IV sedation was administered by Anesthesia under continuous monitoring. Digital rectal examination was normal, with nonthrombosed external hemorrhoids noted . Initially the Olympus CF-190 flexible video colonoscope was then inserted in the rectum, gradually advanced into the cecum without any difficulty. Careful examination was performed as the scope was gradually being withdrawn. Ileocecal valve and the appendiceal orifice were visualized and appeared normal. Prep was excellent. Mucosa of the cecum, ascending colon, transverse colon, descending colon, sigmoid colon, and rectum appeared normal. A diminutive 1-2 mm descending colon polyp was removed. Polypectomy . Retroflexion was performed in the rectum and no lesions were seen internal hemorrhoids noted . The patient tolerated the procedure well. IMPRESSION: Diminutive descending colon polyp removed with cold forcep polypectomy. Large internal hemorrhoids. External hemorrhoids. RECOMMENDATIONS: Findings of this examination were discussed with the patient and his family/. Okay to resume diet. Okay to resume medications. Await pathology from polypectomy. Recommend repeat colonoscopy in 7 years for colon polyps pending pathology from polypectomy. Extensive discussion with the patient has regarding local hemorrhoidal care with sitz baths, Tucks pads, topical steroid therapy, stool softeners. If patient continues to have bleeding would recommend referral to surgical service for definitive treatment of the hemorrhoids.
[2021-06-11 10:23] VITALS: BP 145/92; PULSE 72
== END 2021-06-11 10:34 | disposition home or self-care (01) ==
LOC: ORWHC2ENDO 08:27
PROVIDERS: ATTEND Internal Medicine
DX: Z12.11 Encounter for screening for malignant neoplasm of colon (principal); D12.4 Benign neoplasm of descending colon; K62.5 Hemorrhage of anus and rectum; K64.4 Residual hemorrhoidal skin tags; K64.8 Other hemorrhoids; Z87.19 Personal history of other diseases of the digestive system; E11.9 Type 2 diabetes mellitus without complications; F41.8 Other specified anxiety disorders; Z79.01 Long term (current) use of anticoagulants; F20.9 Schizophrenia, unspecified
CPT/HCPCS: 45380; 88305; J2704